=== PATIENT | female | born 1930 | race Asian ===

== ENCOUNTER 2017-05-17 19:46 | Inpatient (IN) | payer MEDICARE, BC ==
[~2017-05-17] VITALS: Ht 157.5 cm; Wt 50.6 kg
[~2017-05-17 19:46] MED LIST: ALLO100T PO; AMIO200T2 PO; ERGO500014 PO; FOLI-49 PO; FOLI1CAP PO; GLUCOSAMINE 1,1 EACH PO; NIFE60TA7 PO; OLME40TA14 PO; SEVE800T10 PO
--- NOTE | 2017-05-17 20:20 | ERA ---
ER Documentation Chief Complaint Date/Time DATE: 05/17/17 TIME: 20:17 Chief Complaint pt biba from home for weakness x 1 day, a&o x2 HPI Patient is an 87-year-old female with end-stage renal disease on dialysis who presents to the ER with 1 day of generalized weakness. Patient is not currently speaking which limits history. Per report, the patient has had generalized weakness since yesterday and has complained of facial pain.Last dialysis was yesterday. ROS All systems reviewed and are negative except as per history of present illness. Medications Home Meds Reported Medications Temazepam* (Temazepam*) 7.5 Mg Capsule, 7.5 MG PO HS Y for INSOMNIA, CAP 05/17/17 Ergocalciferol* (Drisdol* (Vitamin D2)) 50,000 Unit Capsule, 73490 UNIT PO Q14D , CAP 05/19/16 Folic Acid/Vitamin B Comp W-C (Nephrocaps Capsule) 1 Mg Capsule, 1 MG PO DAILY, CAP 05/19/16 Amiodarone Hcl* (Amiodarone Hcl*) 200 Mg Tablet, 100 MG PO DAILY, #30 TAB 05/19/16 Olmesartan Medoxomil (Benicar) 40 Mg Tablet, 40 MG PO DAILY, #30 TAB 05/19/16 Sevelamer Hcl* (Renagel*) 800 Mg Tablet, 1600 MG PO WITH MEALS TID, TAB 05/19/16 Allopurinol* (Allopurinol*) 100 Mg Tablet, 100 MG PO DAILY, TAB 05/19/16 Nifedipine* (Nifedipine ER*) 60 Mg Tablet.sa, 60 MG PO DAILY, TAB.SA 05/19/16 Folic Acid* (Folic Acid*) 1 Mg Tablet, 1 MG PO DAILY, TAB 05/19/16 Discontinued Reported Medications Gluc Burrell/Chondro Burrell A/Vit C/Mn (Glucosamine 1,500 Complex Cp) 1 Each Capsule, 1 EACH PO, CAP 05/19/16 Allergies Allergies: Coded Allergies: gabapentin (Unverified Adverse Reaction, Unknown, 05/17/17) PMhx/Soc Past medical history: Diabetes mellitus, hypertension, end-stage renal disease Past surgical history: Left arm dialysis fistula, cannot obtain further history Social history: Cannot obtain History of Surgery: Yes (PACEMAKER RIGHT CHEST 7YRS AGO, RIGHT HIP SURGERY 3YRS AGO, HYSTERECTOMY 17) Anesthesia Reaction: No Hx Neurological Disorder: No Hx Respiratory Disorders: No Hx Cardiac Disorders: Yes (PACEMAKER 7 YRS AGO) Hx Psychiatric Problems: No Hx Alcohol Use: No Hx Substance Use: No Hx Tobacco Use: No Smoking Status: Never smoker FmHx Cannot obtain Physical Exam Vitals Vital Signs Date Time Temp Pulse Resp B/P Pulse Ox O2 Delivery O2 Flow Rate FiO2 05/17/17 21:06 98.6 52 21 145/73 94 Room Air 05/17/17 19:54 98.6 57 18 166/74 93 Physical Exam Const: Alert, lethargic, follows commands but not speaking, Groaning Head: Atraumatic Eyes: Normal Conjunctiva, No pallor, no icterus ENT: Normal External Ears, Nose and Mouth.Tacky mucous membranes, no intraoral lesions. Neck: Full range of motion..~ No meningismus. Resp: Clear to auscultation bilaterally, No wheezes, no rales Cardio: Regular rate and rhythm, no murmurs Abd: Soft, non tender, non distended. 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 Psych: Normal Mood and Affect Result Diagram: 05/17/172109 Results 24 hrs Laboratory Tests Test 05/17/17 21:10 White Blood Count 6.610^3/ul Red Blood Count 3.1310^6/ul Hemoglobin 10.4g/dl Hematocrit 31.7% Mean Corpuscular Volume 101.3fl Mean Corpuscular Hemoglobin 33.2pg Mean Corpuscular Hemoglobin Concent 32.8g/dl Red Cell Distribution Width 17.2% Platelet Count 10075^3/UL Mean Platelet Volume 10.9fl Neutrophils % 75.6% Lymphocytes % 12.1% Monocytes % 10.0% Eosinophils % 0.5% Basophils % 0.6% Nucleated Red Blood Cells % 0.0/100WBC Neutrophils # (Manual) 5.010^3/ul Lymphocytes # 0.810^3/ul Monocytes # 0.710^3/ul Eosinophils # 0.010^3/ul Basophils # 0.010^3/ul Nucleated Red Blood Cells # 0.010^3/ul Prothrombin Time 13.6Sec Prothrombin Time Ratio 1.1 INR International Normalized Ratio 1.04 Activated Partial Thromboplast Time 31.8Sec Sodium Level Pending Potassium Level Pending Chloride Level Pending Carbon Dioxide Level Pending Anion Gap Pending Blood Urea Nitrogen Pending Creatinine Pending Glucose Level Pending Lactic Acid Level 1.5mmol/L Calcium Level Pending Total Bilirubin Pending Direct Bilirubin Pending Indirect Bilirubin Pending Aspartate Amino Transf (AST/SGOT) Pending Alanine Aminotransferase (ALT/SGPT) Pending Alkaline Phosphatase Pending Troponin I 0.017ng/ml Total Protein Pending Albumin Pending Globulin Pending Albumin/Globulin Ratio Pending Current Medications Medications (Trade) Dose Ordered Sig/Dannielle Route PRN Reason Start Time Stop Time Status Last Admin Dose Admin Ondansetron HCl (Zofran Inj) 4 mg BRIDGE ORDER PRN IV NAUSEA AND/OR VOMITING 05/18/17 00:00 05/18/17 23:59 Acetaminophen (Tylenol Tab) 650 mg ER BRIDGE PRN PO MILD PAIN/FEVER 05/18/17 00:00 05/18/17 23:59 Procedures/MDM EKG read by me: Time 2051, rate 54 Rhythm: Sinus bradycardia [place]: Right superior Intervals: Right bundle branch block ST-T waves: Nonspecific changes in anterior leads Ectopy: No Q-waves: No Impression: Bradycardia with right bundle branch block and nonspecific ST-T wave changes in anterior leads that are not clearly ischemic MDM: Patient is an 87-year-old female who presents with 2 days of generalized weakness. She normally is able to walk with a walker, but has not been able to get out of bed since yesterday. She also has history of trigeminal neuralgia and states that her symptoms have been worse for the last 2 days. She has no fever or signs of infection. She has no focal neuro deficit and has a negative head CT. She has no leukocytosis. 2 BMPs were drawn and both hemolyzed, so at this time only troponin and lactic acid have resulted and are normal. The patient will be admitted based on clinical presentation, with close follow-up of BMP when redraw is available. I have spoke with Dr. Cahudhry and Dr. Silver, who will follow up on the electrolyte results. Accu-Chek was 99. Departure Diagnosis: Primary Impression: Acute weakness Additional Impression: End stage renal disease Condition: STEVEN Brown MD May 17, 2017 20:20
--- NOTE | 2017-05-17 20:50 | RADRPT ---
PROCEDURE: CT Brain without contrast. CLINICAL INDICATION: Altered mental status TECHNIQUE: A CT of the brain was performed on a multidetector CT scanner utilizing axial imaging f rom the skull base through the vertex without IV contrast. Multiplanar reformatted images were made . Images were reviewed on a PACS workstation. The CTDIvol is 117.89 mGy mGy and the DLP is 1813.58 mGy.cm mGycm. Individualized dose optimization technique was used for the performance of this exam. This included 1. Automated exposure control. 2. Adjustment of the mA/or kV according to the patient size. 3. Use of iterative reconstruction technique. COMPARISON: None FINDINGS: There is moderate diffuse cerebral volume loss with sulcal and ventricular dilatation. No discrete e xtra-axial fluid collection or masses present. The ventricles are in the midline and of normal conto ur and configuration. Noted is periventricular white matter disease in both cerebral hemispheres. No associated mass effect is seen. There is no intracranial hemorrhage. There is preservation of jeffrey l barnett-white discrimination. There is minimal debris in the right sphenoid sinus. IMPRESSION: Atrophy. White matter disease compatible with chronic small vessel ischemia. No intracranial hemorrh age, mass or acute infarct. .Conner Herrmann MD, MD Date Time Electronically viewed and signed by .Conner Herrmann MD, MD on 05/17/2017 20:50 .A/
[2017-05-17] MEDS ORDERED: TEMA7.5C PO (21:35)
[2017-05-17 21:39] LABS: BASOPHILS % 0.6 % (0.0-2.0); EOSINOPHILS % 0.5 % (0.0-7.0); HEMATOCRIT 31.7 % (37.0-47.0); HEMOGLOBIN 10.4 g/dl (12.0-16.0); LYMPHOCYTES # 0.8 10^3/ul (0.8-2.9); LYMPHOCYTES % 12.1 % (15.0-51.0); MEAN CORPUSCULAR HEMOGLOBIN 33.2 pg (29.0-33.0); MEAN CORPUSCULAR HGB CONC 32.8 g/dl (32.0-37.0); MEAN CORPUSCULAR VOLUME 101.3 fl (82.0-101.0); MEAN PLATELET VOLUME 10.9 fl (7.4-10.4); MONOCYTE # 0.7 10^3/ul (0.3-0.9); NEUTROPHILS % 75.6 % (39.0-77.0); PLATELET COUNT 166 10^3/UL (140-415); RED BLOOD COUNT 3.13 10^6/ul (4.20-5.40); RED CELL DISTRIBUTION WIDTH 17.2 % (11.5-14.5); WHITE BLOOD COUNT 6.6 10^3/ul (4.8-10.8)
--- NOTE | 2017-05-17 21:49 | RADRPT ---
PROCEDURE: XR Chest. CLINICAL INDICATION: Shortness of breath. TECHNIQUE: AP Portable chest. COMPARISON: No pertinent prior examinations were submitted for comparison. FINDINGS: There is moderate to marked cardiomegaly. Atherosclerotic calcifications are noted in the aorta. A r ight chest cardiac device and leads are noted. The lungs are clear. The osseous structures are unr emarkable. IMPRESSION: No acute findings. RPTAT: HIKT .Familia Pérez MD, MD Date Time Electronically viewed and signed by .Familia Pérez MD, on 05/17/2017 21:49 .T/
[2017-05-17 21:52] LABS: INR 1.04; PROTIME 13.6 Sec (12.2-14.2); PT RATIO 1.1
[2017-05-17 21:53] LABS: PARTIAL THROMBOPLASTIN TIME 31.8 Sec (25.0-35.0)
[2017-05-17 22:14] LABS: TROPONIN-I 0.017 ng/ml (0.00-0.12)
[2017-05-18] VITALS (13 sets, daily range): BP systolic 142–185; BP diastolic 58–79; PULSE 50–67; RESP 16–20; TEMP 98.4; Ht 157.5 cm; Wt 50.6 kg
[2017-05-18] MEDS ORDERED: ONDANSETRON 4 MG INJ IV PRN
[2017-05-18 00:45] LABS: ALBUMIN 3.4 g/dl (3.3-4.9); ALBUMIN/GLOBULIN RATIO 1.03; CALCIUM 8.9 mg/dl (8.4-10.2); CREATININE 4.16 mg/dl (0.44-1.00); TOTAL PROTEIN 6.7 g/dl (6.1-8.1)
[2017-05-18] MEDS ORDERED: ACETAMINOPHEN 325 MG TAB PO PRN ×2 (01:30)
[2017-05-18] MEDS: FAMOTIDINE 20 MG INJ IV SCH ×2 (01:30→09:13)
[2017-05-18] MEDS ORDERED: NACL 0.9% 3 ML SYG IV SCH (01:30)
[2017-05-18] MEDS: hydrALAzine 20 MG INJ IV PRN ×2 (03:47→12:30)
[2017-05-18] MEDS: ONDANSETRON 4 MG INJ IV PRN ×3 (07:03→22:17)
--- NOTE | 2017-05-18 07:32 | HP ---
Date/Time of Note Date/Time of Note DATE: 05/18/17 TIME: 07:26 Assessment/Plan VTE Prophylaxis VTE Prophylaxis Intervention: SCD's Lines/Catheters IV [facility] ([facility] [place] Urinary Cath still in place: No Assessment/Plan Chief Complaint/Hosp Course This is a 87-year-old female being admitted to the [facility] floor for: #1 generalized weakness: Infectious versus metabolic versus dehydration versus other underlying etiology. At the current time patient's white blood cell count was within normal values she is afebrile. Chest x-ray does not show any sign of pneumonia. At the current etiology of her sudden weakness is not known. Will check a CRP and ESR level. Will attempt to get a urinalysis with urine that she does reduce. Will trend cardiac enzymes for completeness sake. Will consult nephrology as well. #2 mild dehydration: Patient does appear to have moist mucous membranes, will provide her with gentle IV fluid hydration. #3 end-stage renal disease: Patient did have dialysis on Sunday, will consult nephrology for further guidance. #4 hypertension: We will continue to monitor blood pressure and resume all medication as indicated. #5 elevated alkaline phosphatase: This likely to be secondary to acute phase reactant, will continue to monitor an order right upper quadrant ultrasound if indicated. Patient currently does not does not have a fever or elevated white blood cell count #6 DVT GI prophylaxis: SCDs, acid antonio Further treatment strategy will be implemented as per the clinical course Problems: HPI/ROS Admit Date/Time Admit Date/Time May 17, 2017 at 23:58 Hx of Present Illness CC: generalized weakness. Patient is an 87-year-old female with end-stage renal disease on dialysis who presents to the ER with 1 day of generalized weakness. Patient is not currently speaking which limits history. Per report, the patient has had generalized weakness since yesterday and has complained of facial pain.Last dialysis was yesterday. Family is present at the bedside of my examination and he stated that patient usually does feel slightly unwell after dialysis however she usually improves at this time she has not. She was complaining of left- sided facial pain which has now since resolved. She has not had this happen to her before. She does still produce small amount of urine though she is on dialysis. Denies any fevers or chest pain or shortness of breath or nausea vomiting or diarrhea. Allergies: Gabapentin Medications: See Nov Const: As per HPI Eyes : No pain discharge or redness or change in visual acuity ENT: As per HPI Respiratory: No shortness of breath, cough, sputum, wheezing, or pleuritic pain Cardiovascular: No chest pain, palpitation, PND, or edema GI : no change in appetite, abdominal pain, nausea, vomiting, diarrhea, constipation, or change in the color his stool Genitourinary: No dysuria, hematuria, flank pain , discharge or CVA tenderness Musculoskeletal: No joint pain, back pain, neck pain, restricted range of motion in neck or joints Skin: No rash, bruising or hives Neuro: As per HPI Endocrine: No polyuria, polydipsia, temperature intolerance Psych: No hallucination, depression, anxiety or suicidal ideation PMH/Family/Social Past Medical History Hypertension, end-stage renal disease, arthritis Past Surgical History Left hip surgery, left AV fistula, pacemaker placement Family History Significant Family History: no pertinent family hx Social History Alcohol Use: none Smoking Status: Former smoker Drug Use: none Exam/Review of Systems Vital Signs Vitals Vital Signs Date Time Temp Pulse Resp B/P Pulse Ox O2 Delivery O2 Flow Rate FiO2 05/18/17 01:30 98.3 52 18 166/75 96 05/18/17 00:48 Room Air Exam Exam General: Patient is lying in bed sleeping, she is easily arousable however she is lethargic HEENT: Atraumatic, normocephalic. The pupils are equal, round and reactive. Extraocular motor are intact, mucous membranes are dry Neck: Supple with full range of motion. No rigidity or meningismus Chest: Nontender Lungs: Clear to auscultation bilaterally no crackles rales or wheezing Heart: Normal S1-S2, Regular rhythm and rate. No murmur, S3, or S4 Abdomen: Soft , nontender, nondistended , bowel sounds are present. No guarding no rebound tenderness , No masses or organomegaly. No costovertebral temporal angle mass Extremities: Normal to inspection, no edema no cyanosis Neurologic: Normal mental status, speech normal, unable to fully assess neuro exam secondary to patient's lethargy. Additional Comments PROCEDURE: XR Chest. CLINICAL INDICATION: Shortness of breath. TECHNIQUE: AP Portable chest. COMPARISON: No pertinent prior examinations were submitted for comparison. FINDINGS: There is moderate to marked cardiomegaly. Atherosclerotic calcifications are noted in the aorta. A right chest cardiac device and leads are noted. The lungs are clear. The osseous structures are unremarkable. IMPRESSION: No acute findings. RPTAT: HIKT .Familia Pérez MD, MD Date Time Electronically viewed and signed by .Familia Pérez MD, MD on 05/17/2017 21:49 .T/ CC: STEVEN MENDIOLA MD PROCEDURE: CT Brain without contrast. CLINICAL INDICATION: Altered mental status TECHNIQUE: A CT of the brain was performed on a multidetector CT scanner utilizing axial imaging from the skull base through the vertex without IV contrast. Multiplanar reformatted images were made. Images were reviewed on a PACS workstation. The CTDIvol is 117.89 mGy mGy and the DLP is 1813.58 mGy.cm mGycm. Individualized dose optimization technique was used for the performance of this exam. This included 1. Automated exposure control. 2. Adjustment of the mA/or kV according to the patient size. 3. Use of iterative reconstruction technique. COMPARISON: None FINDINGS: There is moderate diffuse cerebral volume loss with sulcal and ventricular dilatation. No discrete extra-axial fluid collection or masses present. The ventricles are in the midline and of normal contour and configuration. Noted is periventricular white matter disease in both cerebral hemispheres. No associated mass effect is seen. There is no intracranial hemorrhage. There is preservation of normal barnett-white discrimination. There is minimal debris in the right sphenoid sinus. IMPRESSION: Atrophy. White matter disease compatible with chronic small vessel ischemia. No intracranial hemorrhage, mass or acute infarct. .Conner Herrmann MD, Date Time Electronically viewed and signed by .Conner Herrmann MD, MD on 05/17/2017 20: 50 .A/ CC: STEVEN MENDIOLA MD Labs Result Diagram: 05/17/17210905/17/172109 Medications Medications Current Medications Ondansetron HCl (Zofran Inj) 4 mg Q6H PRN IV NAUSEA AND/OR VOMITING Last administered on 05/18/17 07:03; Admin Dose 4 MG; Start 05/18/17 at 01:30 Acetaminophen (Tylenol Tab) 650 mg Q6H PRN PO PAIN LEVEL 1-3 OR FEVER; Start at 01:30 Famotidine (Pepcid Iv) 20 mg DAILY IV ; Start 05/18/17 at 01:30 Hydralazine HCl (Apresoline) 10 mg Q4H PRN IV ELEVATED SYSTOLIC BP Last administered on 05/18/17 03:47; Admin Dose 10 MG; Start 05/18/17 at 03:30 DALY FATIMA May 18, 2017 07:32
[2017-05-18 07:33] LABS: ALBUMIN 3.8 g/dl (3.3-4.9); CALCIUM 9.3 mg/dl (8.4-10.2); CREATININE 4.48 mg/dl (0.44-1.00); POTASSIUM 5.1 mmol/L (3.5-5.1); TOTAL PROTEIN 7.6 g/dl (6.1-8.1)
[2017-05-18 08:10] LABS: C-REACTIVE PROTEIN 2.3 mg/dl (0.0-0.9); MAGNESIUM 2.3 mg/dl (1.7-2.5); PHOSPHORUS 3.5 mg/dl (2.5-4.9)
[2017-05-18 08:18] LABS: TROPONIN-I 0.029 ng/ml (0.00-0.12)
[2017-05-18 08:28] LABS: CHOL/HDL RATIO 1.9 RATIO
[2017-05-18] MEDS ORDERED: HYDROmorphONE 1 MG/ML SYG IV PRN (08:30)
[2017-05-18] MEDS: NIFEdipine (XL) 60 MG TAB PO SCH ×2 (09:00→13:58)
[2017-05-18] MEDS ORDERED: ZOLPIDEM 5 MG TAB PO PRN (09:00)
[2017-05-18] MEDS: LOSARTAN 50 MG TAB PO SCH ×2 (09:00→13:57)
[2017-05-18] MEDS: DEXTROSE 5%-0.45% NACL 1,000 ML IV SCH (09:08)
[2017-05-18] MEDS: MULTIVIT/CA CARB/B CMPLX/FA TAB PO SCH (09:12)
[2017-05-18] MEDS: SEVELAMER 800 MG TAB PO SCH ×4 (09:12→22:10)
[2017-05-18] MEDS: ALLOPURINOL 100 MG TAB PO SCH (09:13)
--- NOTE | 2017-05-18 09:51 | HP ---
DATE OF ADMISSION: 05/17/2017 REASON FOR ADMISSION: Dizziness, left jaw pain, generalized weakness. HISTORY OF PRESENT ILLNESS: This 87-year-old female has been ill for at least 2-3 days. The patient has had difficulty eating because whenever she opens her jaw it can trigger a left-sided jaw pain, which is probably trigeminal neuralgia. She has tried several medications including gabapentin and baclofen, which have not helped the pain. She has been on pain pills including Advil and tramadol without relief. Then the last couple of days, she has started baclofen. She then developed some nausea with vomiting and she has been dizzy. She has end-stage renal disease and is on maintenance hemodialysis Sunday, Sunday, Sunday, and today being Sunday, she is due for dialysis. She has a left upper arm AV fistula for dialysis. She denies any chest pain. She has not had any shortness of breath. PAST MEDICAL HISTORY: Remarkable for end-stage renal disease, hypertension, arrhythmia, peripheral neuropathy, cardiac pacemaker. SURGICAL HISTORY: Remarkable for cholecystectomy in 1978, hysterectomy in 1974, left upper arm fistula creation, cardiac pacemaker, 2010. FAMILY HISTORY: Father , diagnosed with hypertension. Mother . SOCIAL HISTORY: The patient does not smoke. Does not drink alcohol. MEDICATIONS: Include: 1. Ativan 0.5 mg at bedtime p.r.n. anxiety. 2. Nifediac CC 90 mg a day extended-release. 3. Vitamin D2, 50,000 units weekly. 4. Benicar 40 mg a day. 5. Lactulose Syrup orally once or twice a day for constipation. 6. Nephrocaps 1 daily. 7. Amiodarone 100 mg a day. 8. Renagel 1600 mg with each meal. 9. Temazepam 7.5 mg at bedtime for sleep. 10. Allopurinol 100 mg a day. 11. Advil p.r.n. pain. 12. [place] 5/325 every 6 hours p.r.n. pain. 13. Tramadol 50 mg q.6 hours p.r.n. pain. REVIEW OF SYSTEMS: CONSTITUTIONAL: Generalized weakness, frail, elderly. Poor appetite. HEENT: Negative. HEART: Regular rhythm with a 1/6 systolic ejection murmur. LUNGS: Clear to auscultation. BACK: No spine or CVA tenderness. She did have a large mass on the right upper posterior chest, which has resolved. ABDOMEN: Soft, nontender. No masses or megaly. EXTREMITIES: Trace pretibial edema. Left upper arm AV fistula. IMPRESSION: 1. Generalized weakness with dizziness, nausea, vomiting. 2. Trigeminal neuralgia on the left jaw. 3. End-stage renal disease, on maintenance hemodialysis. 4. History of arteritis. 5. History of enlarged lymph nodes. 6. Arthropathy. PLAN: 1. Hemodialysis treatment for today. 2. Neurology consultation. 3. IV fluids, antiemetics and pain medicine. 4. The patient has failed gabapentin and baclofen for the trigeminal neuralgia. I would like to use Dilantin or less likely Tegretol. We will discuss with neurologist. Dictated By: Reagan Mathew MD /heather/obie /Document#: [id number]
--- NOTE | 2017-05-18 10:19 | QN ---
Documentation Comment Patient seen and examined with family at bedside. Patient was started on Baclofen and received 3 doses prior to admission which may be contributing to her lethargy. She does open her eyes to command. Patient is due for dialysis today as well and her PCP/[employer] is on board. He would like to get Neurology involved for treatment options for her Trigeminal Neuralgia. Will try topical Lidocaine at this time since ice usually helps with her pain in the past. Tegretol should be avoided in ESRD based on studies but will ask if Lamotrigine would be an alternative option. EVERARDO VELASQUEZ MD May 18, 2017 10:19
[2017-05-18 11:28] LABS: FREE T3 2.48 pg/ml (2.77-5.27)
[2017-05-18] MEDS ORDERED: LIDOCAINE 5% 35 GM OINT TOP PRN (12:30)
[2017-05-18] MEDS: LIDOCAINE 5% 35 GM OINT TOP SCH ×3 (12:36→22:11)
--- NOTE | 2017-05-18 12:44 | CONS ---
Date/Time of Note Date/Time of Note DATE: 05/18/17 TIME: 12:33 Assessment/Plan Assessment/Plan Chief Complaint/Hosp Course 87 year old female with history of left jaw pain, present only on mastication, symptoms worsening with no relief with gabapentin, tramadol, baclofen. Unclear if this represents trigeminal neuralgia vs. TMJ. ESR: 47 Would ideally recommend MRI Brain w w/o contrast to rule out possibility of vascular compression/ abnormality that may precipitate trigeminal neuralgia. However patient has a PPM unable to receive MRI. May obtain CTA Head and dialyze after to rule out possibility of vascular anomaly. Recommend Trial of low dose Lyrica. Dose after dialysis. Unclear if Lyrica will alleviate her symptoms if this is TMJ. Botox is an option as well as PM&R evaluation, often TENS unit can be helpful to alleviate TMJ symptoms. Problems: Consultation Date/Type/Reason Admit Date/Time May 17, 2017 at 23:58 Date of Consultation: May 18, 2017 Type of Consultation: Neurology Reason for Consultation evaluation for trigeminal neur Referring Provider: PHOEBE WILSON MD Hx of Present Illness 87 year old female with history of difficulty eating with left sided jaw pain, anytime she opens her mouth or attempts to masticate. In the past few days her pain has worsened severely she feels nauseous and vomits when attempting to eat food. She has tried several medications including gabapentin, tramadol, baclofen with no relief of her pain. She is currently with family at bedside reports only discomfort on attempting to chew, no pain reported at rest. Social History Alcohol Use: none Smoking Status: Former smoker Drug Use: none Exam/Review of Systems Vital Signs Vitals Vital Signs Date Time Temp Pulse Resp B/P Pulse Ox O2 Delivery O2 Flow Rate FiO2 05/18/17 07:45 97.4 56 18 176/79 90 05/18/17 00:48 Room Air Exam awake and alert oriented to self hospital and families NAD resting in bed receiving dialysis CN: II-XII intact Motor poor cooperation with full exam refusing strength testing Results Result Diagram: 05/17/17210905/18/17 0554 Results 24 hrs Laboratory Tests Test 05/17/17 21:10 05/18/17 00:03 05/18/17 04:57 05/18/17 05:31 White Blood Count 6.6 Red Blood Count 3.13 L Hemoglobin 10.4 L Hematocrit 31.7 L Mean Corpuscular Volume 101.3 H Mean Corpuscular Hemoglobin 33.2 H Mean Corpuscular Hemoglobin Concent 32.8 Red Cell Distribution Width 17.2 H Platelet Count 166 Mean Platelet Volume 10.9 #H Neutrophils % 75.6 Lymphocytes % 12.1 L Monocytes % 10.0 Eosinophils % 0.5 Basophils % 0.6 Nucleated Red Blood Cells % 0.0 Neutrophils # (Manual) 5.0 Lymphocytes # 0.8 Monocytes # 0.7 Eosinophils # 0.0 Basophils # 0.0 Nucleated Red Blood Cells # 0.0 Prothrombin Time 13.6 Prothrombin Time Ratio 1.1 INR International Normalized Ratio 1.04 Activated Partial Thromboplast Time 31.8 Sodium Level 136 Potassium Level 5.0 Chloride Level 96 L Carbon Dioxide Level 32 H Anion Gap 13 Blood Urea Nitrogen 31 H Creatinine 4.16 H Glucose Level 102 Lactic Acid Level 1.5 Calcium Level 8.9 Total Bilirubin 0.0 L Direct Bilirubin 0.00 Indirect Bilirubin 0.0 Aspartate Amino Transf (AST/SGOT) 30 Alanine Aminotransferase (ALT/SGPT) 27 Alkaline Phosphatase 186 H Troponin I 0.017 Total Protein 6.7 Albumin 3.4 Globulin 3.30 H Albumin/Globulin Ratio 1.03 Bedside Glucose 99 Thyroid Stimulating Hormone (TSH) 0.348 L Erythrocyte Sedimentation Rate 47 H Test 05/18/17 05:36 05/18/17 05:50 05/18/17 05:54 05/18/17 10:08 Hemoglobin A1c 5.0 Phosphorus Level 3.5 Magnesium Level 2.3 Troponin I 0.029 0.024 C-Reactive Protein 2.3 H Triglycerides Level 80 Cholesterol Level 99 L LDL Cholesterol, Calculated 32 HDL Cholesterol 51 Cholesterol/HDL Ratio 1.9 Sodium Level 139 Potassium Level 5.1 Chloride Level 97 Carbon Dioxide Level 27 Anion Gap 20 #H Blood Urea Nitrogen 33 H Creatinine 4.48 H Glucose Level 110 Calcium Level 9.3 Total Bilirubin 0.0 L Direct Bilirubin 0.00 Indirect Bilirubin 0.0 Aspartate Amino Transf (AST/SGOT) 32 Alanine Aminotransferase (ALT/SGPT) 29 Alkaline Phosphatase 205 H Total Protein 7.6 Albumin 3.8 Globulin 3.80 H Albumin/Globulin Ratio 1.00 Test 05/18/17 10:13 Free Thyroxine 2.84 H Thyroxine (T4) 7.8 Free Triiodothyronine (T3) pg/mL 2.48 L Total Triiodothyronine Pending Medications Medications Current Medications Ondansetron HCl (Zofran Inj) 4 mg Q6H PRN IV NAUSEA AND/OR VOMITING Last administered on 05/18/17 11:54; Admin Dose 4 MG; Start 05/18/17 at 01:30 Acetaminophen (Tylenol Tab) 650 mg Q6H PRN PO PAIN LEVEL 1-3 OR FEVER; Start at 01:30 Famotidine (Pepcid Iv) 20 mg DAILY IV Last administered on 05/18/17 09:13; Admin Dose 20 MG; Start 05/18/17 at 01:30 Hydralazine HCl (Apresoline) 10 mg Q4H PRN IV ELEVATED SYSTOLIC BP Last administered on 05/18/17 12:30; Admin Dose 10 MG; Start 05/18/17 at 03:30 Allopurinol (Zyloprim) 100 mg DAILY PO Last administered on 05/18/17 09:13; Admin Dose 100 MG; Start 05/18/17 at 09:00 Nifedipine (Procardia Xl) 60 mg DAILY PO ; Start 05/18/17 at 09:00 Sevelamer HCl (Renagel) 1,600 mg TID PO Last administered on 05/18/17 09:12; Admin Dose 1,600 MG; Start 05/18/17 at 09:00 Multivit/Ca Carb/ B Cmplx/FA/Prenat (Galilea-Jaci) 1 tab DAILY PO Last administered on 05/18/17 09:12; Admin Dose 1 TAB; Start 05/18/17 at 09:00 Losartan Potassium (Cozaar) 100 mg DAILY PO ; Start 05/18/17 at 09:00 Zolpidem Tartrate 5 mg 5 mg HS PRN PO INSOMNIA; Start 05/18/17 at 09:00 Dextrose/Sodium Chloride (D5-1/2ns) 1,000 ml @ 50 mls/hr Q20H IV Last administered on 05/18/17 09:08; Admin Dose 50 MLS/HR; Start 05/18/17 at 08:30 Hydromorphone HCl (Dilaudid) 0.5 mg Q4H PRN IV SEVERE PAIN LEVEL 7-10; Start at 08:30 Lidocaine (Lidocaine 5% Oint) 1 applic BID TOP ; Start 05/18/17 at 10:00 Lidocaine (Lidocaine 5% Oint) 1 applic Q4 PRN TOP FACE PAIN; Start 05/18/17 at 12:30 MARVIN DE LA FUENTE MD May 18, 2017 12:44
[2017-05-18] MEDS ORDERED: PREGABALIN 25 MG CAP PO SCH (13:00)
[2017-05-18] MEDS ORDERED: METOCLOPRAMIDE 10 MG INJ IV PRN (13:00)
[2017-05-18 13:48] LABS: TRIIODOTHYRONINE 0.57 ng/ml (0.97-1.69)
--- NOTE | 2017-05-18 15:29 | RADRPT ---
Vent Rate: 50 bpm RR Interval: 0 msec [place] Interval: 184 msec QRS Duration: 146 msec QT Interval: 516 msec QTC Interval: 470 msec P-R-T Loris: 72 - 92 - 31 degrees Electronic atrial pacemaker Right bundle branch block Abnormal ECG Electronically Signed By: Amarjit Lyon [id number]
[2017-05-19 02:27] VITALS: BP 157/67; RESP 19
[2017-05-19] MEDS: DEXTROSE 5%-0.45% NACL 1,000 ML IV SCH (03:48)
[2017-05-19 06:28] LABS: BASOPHIL # 0.1 10^3/ul (0.0-0.1); BASOPHILS % 0.8 % (0.0-2.0); EOSINOPHILS # 0.1 10^3/ul (0.0-0.5); EOSINOPHILS % 0.7 % (0.0-7.0); HEMOGLOBIN 9.9 g/dl (12.0-16.0); LYMPHOCYTES % 14.4 % (15.0-51.0); MEAN CORPUSCULAR HEMOGLOBIN 33.2 pg (29.0-33.0); MEAN CORPUSCULAR VOLUME 100.7 fl (82.0-101.0); MEAN PLATELET VOLUME 9.3 fl (7.4-10.4); MONOCYTE # 0.7 10^3/ul (0.3-0.9); MONOCYTES % 10.1 % (0.0-11.0); NEUTROPHILS % 71.7 % (39.0-77.0); PLATELET COUNT 185 10^3/UL (140-415); RED BLOOD COUNT 2.98 10^6/ul (4.20-5.40); WHITE BLOOD COUNT 7.1 10^3/ul (4.8-10.8)
[2017-05-19 06:59] LABS: ALBUMIN 3.3 g/dl (3.3-4.9); ALBUMIN/GLOBULIN RATIO 1.03; CALCIUM 8.5 mg/dl (8.4-10.2); CREATININE 3.11 mg/dl (0.44-1.00); MAGNESIUM 1.9 mg/dl (1.7-2.5); PHOSPHORUS 3.4 mg/dl (2.5-4.9); POTASSIUM 4.1 mmol/L (3.5-5.1); TOTAL PROTEIN 6.5 g/dl (6.1-8.1)
[2017-05-19 07:51] VITALS: BP 151/70; RESP 18
[2017-05-19] MEDS: FAMOTIDINE 20 MG INJ IV SCH (08:45)
[2017-05-19] MEDS: SEVELAMER 800 MG TAB PO SCH ×3 (08:45→20:41)
[2017-05-19] MEDS: MULTIVIT/CA CARB/B CMPLX/FA TAB PO SCH (08:46)
[2017-05-19] MEDS: LOSARTAN 50 MG TAB PO SCH (08:46)
[2017-05-19] MEDS: NIFEdipine (XL) 60 MG TAB PO SCH (08:46)
[2017-05-19] MEDS: ALLOPURINOL 100 MG TAB PO SCH (08:46)
--- NOTE | 2017-05-19 08:46 | PN ---
Date/Time of Note Date/Time of Note DATE: 05/19/17 TIME: 08:45 Assessment/Plan Lines/Catheters IV Catheter Type (from Nrs): Saline Lock Urinary Cath still in place: No Assessment/Plan Assessment/Plan 1. Generalized weakness with dizziness, nausea, vomiting. 2. Trigeminal neuralgia on the left jaw. 3. End-stage renal disease, on HD Exam/Review of Systems Vital Signs Vitals Vital Signs Date Time Temp Pulse Resp B/P Pulse Ox O2 Delivery O2 Flow Rate FiO2 05/19/17 07:51 98.3 50 18 151/70 100 05/18/17 22:30 Nasal Cannula 2.0 Intake and Output 05/18/17 05/18/17 05/19/17 15:00 23:00 07:00 Intake Total 300 ml 250 ml 300 ml Output Total 3300 ml Balance -3000 ml 250 ml 300 ml Results Result Diagram: 05/19/17 0516 05/19/17 0516 Results 24 hrs Laboratory Tests Test 05/18/17 10:08 05/18/17 10:13 05/19/17 05:16 Troponin I 0.024 Free Thyroxine 2.84 H Thyroxine (T4) 7.8 Free Triiodothyronine (T3) pg/mL 2.48 L Total Triiodothyronine 0.57 L White Blood Count 7.1 Red Blood Count 2.98 L Hemoglobin 9.9 L Hematocrit 30.0 L Mean Corpuscular Volume 100.7 Mean Corpuscular Hemoglobin 33.2 H Mean Corpuscular Hemoglobin Concent 33.0 Red Cell Distribution Width 17.0 H Platelet Count 185 Mean Platelet Volume 9.3 Neutrophils % 71.7 Lymphocytes % 14.4 L Monocytes % 10.1 Eosinophils % 0.7 Basophils % 0.8 Nucleated Red Blood Cells % 0.0 Neutrophils # (Manual) 5.1 Lymphocytes # 1.0 Monocytes # 0.7 Eosinophils # 0.1 Basophils # 0.1 Nucleated Red Blood Cells # 0.0 Sodium Level 136 Potassium Level 4.1 Chloride Level 95 L Carbon Dioxide Level 31 Anion Gap 14 Blood Urea Nitrogen 16 # Creatinine 3.11 #H Glucose Level 215 # Calcium Level 8.5 Phosphorus Level 3.4 Magnesium Level 1.9 Total Bilirubin 0.0 L Direct Bilirubin 0.00 Indirect Bilirubin 0.0 Aspartate Amino Transf (AST/SGOT) 28 Alanine Aminotransferase (ALT/SGPT) 35 Alkaline Phosphatase 169 H Total Protein 6.5 # Albumin 3.3 Globulin 3.20 Albumin/Globulin Ratio 1.03 Medications Medications Current Medications Ondansetron HCl (Zofran Inj) 4 mg Q6H PRN IV NAUSEA AND/OR VOMITING Last administered on 05/18/17 22:17; Admin Dose 4 MG; Start 05/18/17 at 01:30 Acetaminophen (Tylenol Tab) 650 mg Q6H PRN PO PAIN LEVEL 1-3 OR FEVER; Start at 01:30 Famotidine (Pepcid Iv) 20 mg DAILY IV Last administered on 05/18/17 09:13; Admin Dose 20 MG; Start 05/18/17 at 01:30 Hydralazine HCl (Apresoline) 10 mg Q4H PRN IV ELEVATED SYSTOLIC BP Last administered on 05/18/17 12:30; Admin Dose 10 MG; Start 05/18/17 at 03:30 Allopurinol (Zyloprim) 100 mg DAILY PO Last administered on 05/18/17 09:13; Admin Dose 100 MG; Start 05/18/17 at 09:00 Nifedipine (Procardia Xl) 60 mg DAILY PO Last administered on 05/18/17 13:58; Admin Dose 60 MG; Start 05/18/17 at 09:00 Sevelamer HCl (Renagel) 1,600 mg TID PO Last administered on 05/18/17 22:10; Admin Dose 1,600 MG; Start 05/18/17 at 09:00 Multivit/Ca Carb/ B Cmplx/FA/Prenat (Galilea-Jaci) 1 tab DAILY PO Last administered on 05/18/17 09:12; Admin Dose 1 TAB; Start 05/18/17 at 09:00 Losartan Potassium (Cozaar) 100 mg DAILY PO Last administered on 05/18/17 13:57 ; Admin Dose 100 MG; Start 05/18/17 at 09:00 Zolpidem Tartrate 5 mg 5 mg HS PRN PO INSOMNIA; Start 05/18/17 at 09:00 Dextrose/Sodium Chloride (D5-1/2ns) 1,000 ml @ 50 mls/hr Q20H IV Last administered on 05/19/17 03:48; Admin Dose 50 MLS/HR; Start 05/18/17 at 08:30 Hydromorphone HCl (Dilaudid) 0.5 mg Q4H PRN IV SEVERE PAIN LEVEL 7-10; Start at 08:30 Lidocaine (Lidocaine 5% Oint) 1 applic BID TOP Last administered on 05/18/17 22 :11; Admin Dose 1 APPLIC; Start 05/18/17 at 10:00 Lidocaine (Lidocaine 5% Oint) 1 applic Q4 PRN TOP FACE PAIN Last administered on 05/18/17 15:20; Admin Dose 1 APPLIC; Start 05/18/17 at 12:30 Metoclopramide HCl (Reglan) 10 mg Q6H PRN IV NAUSEA AND/OR VOMITING Last administered on 05/18/17 13:58; Admin Dose 10 MG; Start 05/18/17 at 13:00 EVERARDO VELASQUEZ MD May 19, 2017 08:46
[2017-05-19] MEDS: LIDOCAINE 5% 35 GM OINT TOP SCH ×2 (08:47→17:23)
--- NOTE | 2017-05-19 09:55 | CONS ---
Date/Time of Note Date/Time of Note DATE: 05/19/17 TIME: 09:53 Consult Date/Type/Reason Admit Date/Time May 17, 2017 at 23:58 Initial Consult Date 05/18/17 Type of Consultation: Neurology Reason for Consultation trigeminal neuralgia left jaw pain Ordering Provider: PHOEBE WILSON MD Subjective ate breakfast today had a lidocaine patch with improved symptoms able to tolerate chewing given Lyrica one dose after dialysis yesterday 25 mg Objective Vital Signs Date Time Temp Pulse Resp B/P Pulse Ox O2 Delivery O2 Flow Rate FiO2 05/19/17 07:51 98.3 50 18 151/70 100 05/18/17 22:30 Nasal Cannula 2.0 Intake and Output 05/18/17 05/18/17 05/19/17 15:00 23:00 07:00 Intake Total 300 ml 250 ml 300 ml Output Total 3300 ml Balance -3000 ml 250 ml 300 ml Exam awake and alert oriented to self hospital and families NAD resting in bed receiving dialysis CN: II-XII intact Motor full strength in all extremities sensory intact throughout Coord intact no tremors Results/Medications Result Diagram: 05/19/17 0516 05/19/17 0516 Results 24 hrs Laboratory Tests Test 05/18/17 10:08 05/18/17 10:13 05/19/17 05:16 Troponin I 0.024 Free Thyroxine 2.84 H Thyroxine (T4) 7.8 Free Triiodothyronine (T3) pg/mL 2.48 L Total Triiodothyronine 0.57 L White Blood Count 7.1 Red Blood Count 2.98 L Hemoglobin 9.9 L Hematocrit 30.0 L Mean Corpuscular Volume 100.7 Mean Corpuscular Hemoglobin 33.2 H Mean Corpuscular Hemoglobin Concent 33.0 Red Cell Distribution Width 17.0 H Platelet Count 185 Mean Platelet Volume 9.3 Neutrophils % 71.7 Lymphocytes % 14.4 L Monocytes % 10.1 Eosinophils % 0.7 Basophils % 0.8 Nucleated Red Blood Cells % 0.0 Neutrophils # (Manual) 5.1 Lymphocytes # 1.0 Monocytes # 0.7 Eosinophils # 0.1 Basophils # 0.1 Nucleated Red Blood Cells # 0.0 Sodium Level 136 Potassium Level 4.1 Chloride Level 95 L Carbon Dioxide Level 31 Anion Gap 14 Blood Urea Nitrogen 16 # Creatinine 3.11 #H Glucose Level 215 # Calcium Level 8.5 Phosphorus Level 3.4 Magnesium Level 1.9 Total Bilirubin 0.0 L Direct Bilirubin 0.00 Indirect Bilirubin 0.0 Aspartate Amino Transf (AST/SGOT) 28 Alanine Aminotransferase (ALT/SGPT) 35 Alkaline Phosphatase 169 H Total Protein 6.5 # Albumin 3.3 Globulin 3.20 Albumin/Globulin Ratio 1.03 Medications Current Medications Ondansetron HCl (Zofran Inj) 4 mg Q6H PRN IV NAUSEA AND/OR VOMITING Last administered on 05/18/17 22:17; Admin Dose 4 MG; Start 05/18/17 at 01:30 Acetaminophen (Tylenol Tab) 650 mg Q6H PRN PO PAIN LEVEL 1-3 OR FEVER; Start at 01:30 Famotidine (Pepcid Iv) 20 mg DAILY IV Last administered on 05/19/17 08:45; Admin Dose 20 MG; Start 05/18/17 at 01:30 Hydralazine HCl (Apresoline) 10 mg Q4H PRN IV ELEVATED SYSTOLIC BP Last administered on 05/18/17 12:30; Admin Dose 10 MG; Start 05/18/17 at 03:30 Allopurinol (Zyloprim) 100 mg DAILY PO Last administered on 05/19/17 08:46; Admin Dose 100 MG; Start 05/18/17 at 09:00 Nifedipine (Procardia Xl) 60 mg DAILY PO Last administered on 05/19/17 08:46; Admin Dose 60 MG; Start 05/18/17 at 09:00 Sevelamer HCl (Renagel) 1,600 mg TID PO Last administered on 05/19/17 08:45; Admin Dose 1,600 MG; Start 05/18/17 at 09:00 Multivit/Ca Carb/ B Cmplx/FA/Prenat (Galilea-Jaci) 1 tab DAILY PO Last administered on 05/19/17 08:46; Admin Dose 1 TAB; Start 05/18/17 at 09:00 Losartan Potassium (Cozaar) 100 mg DAILY PO Last administered on 05/19/17 08:46 ; Admin Dose 100 MG; Start 05/18/17 at 09:00 Zolpidem Tartrate 5 mg 5 mg HS PRN PO INSOMNIA; Start 05/18/17 at 09:00 Dextrose/Sodium Chloride (D5-1/2ns) 1,000 ml @ 50 mls/hr Q20H IV Last administered on 05/19/17 03:48; Admin Dose 50 MLS/HR; Start 05/18/17 at 08:30 Hydromorphone HCl (Dilaudid) 0.5 mg Q4H PRN IV SEVERE PAIN LEVEL 7-10; Start at 08:30 Lidocaine (Lidocaine 5% Oint) 1 applic BID TOP Last administered on 05/19/17 08 :47; Admin Dose 1 APPLIC; Start 05/18/17 at 10:00 Lidocaine (Lidocaine 5% Oint) 1 applic Q4 PRN TOP FACE PAIN Last administered on 05/18/17 15:20; Admin Dose 1 APPLIC; Start 05/18/17 at 12:30 Metoclopramide HCl (Reglan) 10 mg Q6H PRN IV NAUSEA AND/OR VOMITING Last administered on 05/18/17 13:58; Admin Dose 10 MG; Start 05/18/17 at 13:00 Assessment/Plan Chief Complaint/Hosp Course 87 year old female with history of left jaw pain, present only on mastication, symptoms worsening with no relief with gabapentin, tramadol, baclofen. Unclear if this represents trigeminal neuralgia vs. TMJ. ESR: 47 Would ideally recommend MRI Brain w w/o contrast to rule out possibility of vascular compression/ abnormality that may precipitate trigeminal neuralgia. However patient has a PPM unable to receive MRI. May obtain CTA Head and dialyze after to rule out possibility of vascular anomaly. Given low dose Lyrica 25 mg yesterday after dialysis, became sleepy after? if concern for side effect of Lyrica may d/c Lidocaine patch is improving symptoms may continue if no contraindications Botox is an option as well as PM&R evaluation, often TENS unit can be helpful to alleviate symptoms Problems: MARVIN DE LA FUENTE MD May 19, 2017 09:55
--- NOTE | 2017-05-19 13:09 | PN ---
Date/Time of Note Date/Time of Note DATE: 05/19/17 TIME: 13:05 Assessment/Plan VTE Prophylaxis VTE Prophylaxis Intervention: SCD's Lines/Catheters IV Catheter Type (from Nrs): Saline Lock Urinary Cath still in place: No Assessment/Plan Assessment/Plan 1. Generalized weakness with dizziness, nausea, vomiting - Resolved. - etiology medication induced vs infections vs uremia 2. Trigeminal neuralgia on the left jaw. - Neurology on board and recommendations appreciated - Doing well on topical Lidocaine before meals - d/c Lyrica secondary to oversedation - CTA planned for Sunday before HD in order to assess for possibility of vascular compression/ abnormality that may precipitate trigeminal neuralgia. - if imaging studies show no abnormalities will d/c - Spoke with family about Botox being an option as well as outpatient 3. End-stage renal disease, on HD Subjective 24 Hr Interval Summary Free Text/Dictation Patient more awake and alert this am. Granddaughter at bedside and states she has been able to eat with ease when lidocaine applied prior to eating. Spoke with Daughter over the phone who said patient was very sedated after HD yesterday and hard to arouse. She also updated me on the plans for CTA per PCP. Patient denies any new complaints and no acute overnight events. Patient has caregivers that come to the home 8 hours/day. Exam/Review of Systems Vital Signs Vitals Vital Signs Date Time Temp Pulse Resp B/P Pulse Ox O2 Delivery O2 Flow Rate FiO2 05/19/17 07:51 98.3 50 18 151/70 100 05/18/17 22:30 Nasal Cannula 2.0 Intake and Output 05/18/17 05/18/17 05/19/17 15:00 23:00 07:00 Intake Total 300 ml 250 ml 300 ml Output Total 3300 ml Balance -3000 ml 250 ml 300 ml Exam General: NAD, more awake and interactive today CVS: regular rate and rhythm. Systolic murmur Lungs: CTA b/l. no wheezes or rhonchi Abd: soft, NT, ND, +BS, no rebound or guarding Ext: no edema, cyanosis or clubbing Neuro: AAOx3, no focal deficits, nontender palpation of left cheek Results Result Diagram: 05/19/17 0516 05/19/17 0516 Results 24 hrs Laboratory Tests Test 05/19/17 05:16 White Blood Count 7.1 Red Blood Count 2.98 L Hemoglobin 9.9 L Hematocrit 30.0 L Mean Corpuscular Volume 100.7 Mean Corpuscular Hemoglobin 33.2 H Mean Corpuscular Hemoglobin Concent 33.0 Red Cell Distribution Width 17.0 H Platelet Count 185 Mean Platelet Volume 9.3 Neutrophils % 71.7 Lymphocytes % 14.4 L Monocytes % 10.1 Eosinophils % 0.7 Basophils % 0.8 Nucleated Red Blood Cells % 0.0 Neutrophils # (Manual) 5.1 Lymphocytes # 1.0 Monocytes # 0.7 Eosinophils # 0.1 Basophils # 0.1 Nucleated Red Blood Cells # 0.0 Sodium Level 136 Potassium Level 4.1 Chloride Level 95 L Carbon Dioxide Level 31 Anion Gap 14 Blood Urea Nitrogen 16 # Creatinine 3.11 #H Glucose Level 215 # Calcium Level 8.5 Phosphorus Level 3.4 Magnesium Level 1.9 Total Bilirubin 0.0 L Direct Bilirubin 0.00 Indirect Bilirubin 0.0 Aspartate Amino Transf (AST/SGOT) 28 Alanine Aminotransferase (ALT/SGPT) 35 Alkaline Phosphatase 169 H Total Protein 6.5 # Albumin 3.3 Globulin 3.20 Albumin/Globulin Ratio 1.03 Medications Medications Current Medications Ondansetron HCl (Zofran Inj) 4 mg Q6H PRN IV NAUSEA AND/OR VOMITING Last administered on 05/18/17 22:17; Admin Dose 4 MG; Start 05/18/17 at 01:30 Acetaminophen (Tylenol Tab) 650 mg Q6H PRN PO PAIN LEVEL 1-3 OR FEVER; Start at 01:30 Famotidine (Pepcid Iv) 20 mg DAILY IV Last administered on 05/19/17 08:45; Admin Dose 20 MG; Start 05/18/17 at 01:30 Allopurinol (Zyloprim) 100 mg DAILY PO Last administered on 05/19/17 08:46; Admin Dose 100 MG; Start 05/18/17 at 09:00 Nifedipine (Procardia Xl) 60 mg DAILY PO Last administered on 05/19/17 08:46; Admin Dose 60 MG; Start 05/18/17 at 09:00 Sevelamer HCl (Renagel) 1,600 mg TID PO Last administered on 05/19/17 08:45; Admin Dose 1,600 MG; Start 05/18/17 at 09:00 Multivit/Ca Carb/ B Cmplx/FA/Prenat (Galilea-Jaci) 1 tab DAILY PO Last administered on 05/19/17 08:46; Admin Dose 1 TAB; Start 05/18/17 at 09:00 Losartan Potassium (Cozaar) 100 mg DAILY PO Last administered on 05/19/17 08:46 ; Admin Dose 100 MG; Start 05/18/17 at 09:00 Zolpidem Tartrate 5 mg 5 mg HS PRN PO INSOMNIA; Start 05/18/17 at 09:00 Dextrose/Sodium Chloride (D5-1/2ns) 1,000 ml @ 50 mls/hr Q20H IV Last administered on 05/19/17 03:48; Admin Dose 50 MLS/HR; Start 05/18/17 at 08:30 Lidocaine (Lidocaine 5% Oint) 1 applic Q4 PRN TOP FACE PAIN Last administered on 05/18/17 15:20; Admin Dose 1 APPLIC; Start 05/18/17 at 12:30 Metoclopramide HCl (Reglan) 10 mg Q6H PRN IV NAUSEA AND/OR VOMITING Last administered on 05/18/17 13:58; Admin Dose 10 MG; Start 05/18/17 at 13:00 EVERARDO VELASQUEZ MD May 19, 2017 13:09
[2017-05-19 14:07] VITALS: BP 109/54; RESP 18
--- NOTE | 2017-05-19 17:47 | CONS ---
Date/Time of Note Date/Time of Note DATE: 05/19/17 TIME: 17:44 Assessment/Plan Assessment/Plan Additional Assessment/Plan * trigeminal neuralgia: on lyrica and lidocaine patch and better. appreciate neuro eval * n/v; resolved. eating more * esrd: on hd m/w/f. next hd sunday * dizziness: much better * anemia: stable. epogen prn * htn: on meds Consultation Date/Type/Reason Admit Date/Time May 17, 2017 at 23:58 Initial Consult Date 05/18/17 Type of Consultation: Neurology Referring Provider: PHOEBE WILSON MD 24 HR Interval Summary Free Text/Dictation feels better. states lidocaine patch helping and able to chew and eat more. no vomiting Exam/Review of Systems Vital Signs Vitals Vital Signs Date Time Temp Pulse Resp B/P Pulse Ox O2 Delivery O2 Flow Rate FiO2 05/19/17 14:07 98.0 50 18 109/54 99 05/18/17 22:30 Nasal Cannula 2.0 Intake and Output 05/18/17 05/18/17 05/19/17 15:00 23:00 07:00 Intake Total 300 ml 250 ml 300 ml Output Total 3300 ml Balance -3000 ml 250 ml 300 ml Exam Constitutional: alert, oriented, well developed Psych: no complaints Head: atraumatic, normocephalic Neck: non-tender, supple Respiratory: clear to auscultation, diminished breath sounds Cardiovascular: edema, nl pulses, regular rate and rhythm Gastrointestinal: non-tender, soft Results Result Diagram: 05/19/17 0516 05/19/17 0516 Results 24 hrs Laboratory Tests Test 05/19/17 05:16 White Blood Count 7.1 Red Blood Count 2.98 L Hemoglobin 9.9 L Hematocrit 30.0 L Mean Corpuscular Volume 100.7 Mean Corpuscular Hemoglobin 33.2 H Mean Corpuscular Hemoglobin Concent 33.0 Red Cell Distribution Width 17.0 H Platelet Count 185 Mean Platelet Volume 9.3 Neutrophils % 71.7 Lymphocytes % 14.4 L Monocytes % 10.1 Eosinophils % 0.7 Basophils % 0.8 Nucleated Red Blood Cells % 0.0 Neutrophils # (Manual) 5.1 Lymphocytes # 1.0 Monocytes # 0.7 Eosinophils # 0.1 Basophils # 0.1 Nucleated Red Blood Cells # 0.0 Sodium Level 136 Potassium Level 4.1 Chloride Level 95 L Carbon Dioxide Level 31 Anion Gap 14 Blood Urea Nitrogen 16 # Creatinine 3.11 #H Glucose Level 215 # Calcium Level 8.5 Phosphorus Level 3.4 Magnesium Level 1.9 Total Bilirubin 0.0 L Direct Bilirubin 0.00 Indirect Bilirubin 0.0 Aspartate Amino Transf (AST/SGOT) 28 Alanine Aminotransferase (ALT/SGPT) 35 Alkaline Phosphatase 169 H Total Protein 6.5 # Albumin 3.3 Globulin 3.20 Albumin/Globulin Ratio 1.03 Medications Medications Current Medications Ondansetron HCl (Zofran Inj) 4 mg Q6H PRN IV NAUSEA AND/OR VOMITING Last administered on 05/18/17 22:17; Admin Dose 4 MG; Start 05/18/17 at 01:30 Acetaminophen (Tylenol Tab) 650 mg Q6H PRN PO PAIN LEVEL 1-3 OR FEVER; Start at 01:30 Famotidine (Pepcid Iv) 20 mg DAILY IV Last administered on 05/19/17 08:45; Admin Dose 20 MG; Start 05/18/17 at 01:30 Allopurinol (Zyloprim) 100 mg DAILY PO Last administered on 05/19/17 08:46; Admin Dose 100 MG; Start 05/18/17 at 09:00 Nifedipine (Procardia Xl) 60 mg DAILY PO Last administered on 05/19/17 08:46; Admin Dose 60 MG; Start 05/18/17 at 09:00 Sevelamer HCl (Renagel) 1,600 mg TID PO Last administered on 05/19/17 13:36; Admin Dose 1,600 MG; Start 05/18/17 at 09:00 Multivit/Ca Carb/ B Cmplx/FA/Prenat (Galilea-Jaci) 1 tab DAILY PO Last administered on 05/19/17 08:46; Admin Dose 1 TAB; Start 05/18/17 at 09:00 Losartan Potassium (Cozaar) 100 mg DAILY PO Last administered on 05/19/17 08:46 ; Admin Dose 100 MG; Start 05/18/17 at 09:00 Zolpidem Tartrate 5 mg 5 mg HS PRN PO INSOMNIA; Start 05/18/17 at 09:00 Dextrose/Sodium Chloride (D5-1/2ns) 1,000 ml @ 50 mls/hr Q20H IV Last administered on 05/19/17 03:48; Admin Dose 50 MLS/HR; Start 05/18/17 at 08:30 Lidocaine (Lidocaine 5% Oint) 1 applic Q4 PRN TOP FACE PAIN Last administered on 05/18/17 15:20; Admin Dose 1 APPLIC; Start 05/18/17 at 12:30 Metoclopramide HCl (Reglan) 10 mg Q6H PRN IV NAUSEA AND/OR VOMITING Last administered on 05/18/17 13:58; Admin Dose 10 MG; Start 05/18/17 at 13:00 ALFA LUNA MD May 19, 2017 17:46
[2017-05-19 19:51] VITALS: BP 108/53; RESP 20
[2017-05-20] MEDS: DEXTROSE 5%-0.45% NACL 1,000 ML IV SCH (00:01)
[2017-05-20 01:42] VITALS: BP 125/60; RESP 18
[2017-05-20 05:55] LABS: BASOPHIL # 0.1 10^3/ul (0.0-0.1); BASOPHILS % 0.7 % (0.0-2.0); EOSINOPHILS # 0.1 10^3/ul (0.0-0.5); EOSINOPHILS % 1.7 % (0.0-7.0); HEMATOCRIT 30.4 % (37.0-47.0); HEMOGLOBIN 9.6 g/dl (12.0-16.0); LYMPHOCYTES # 1.7 10^3/ul (0.8-2.9); LYMPHOCYTES % 20.8 % (15.0-51.0); MEAN CORPUSCULAR HEMOGLOBIN 31.9 pg (29.0-33.0); MEAN CORPUSCULAR HGB CONC 31.6 g/dl (32.0-37.0); MEAN PLATELET VOLUME 9.5 fl (7.4-10.4); MONOCYTE # 0.9 10^3/ul (0.3-0.9); MONOCYTES % 10.9 % (0.0-11.0); NEUTROPHILS % 63.8 % (39.0-77.0); PLATELET COUNT 197 10^3/UL (140-415); RED BLOOD COUNT 3.01 10^6/ul (4.20-5.40); RED CELL DISTRIBUTION WIDTH 17.2 % (11.5-14.5); WHITE BLOOD COUNT 8.2 10^3/ul (4.8-10.8)
[2017-05-20 06:32] LABS: ALBUMIN 3.5 g/dl (3.3-4.9); CALCIUM 8.5 mg/dl (8.4-10.2); CREATININE 4.31 mg/dl (0.44-1.00); PHOSPHORUS 3.5 mg/dl (2.5-4.9); POTASSIUM 4.6 mmol/L (3.5-5.1)
[2017-05-20] MEDS: ALLOPURINOL 100 MG TAB PO SCH (08:02)
[2017-05-20] MEDS: FAMOTIDINE 20 MG INJ IV SCH (08:02)
[2017-05-20] MEDS: MULTIVIT/CA CARB/B CMPLX/FA TAB PO SCH (08:02)
[2017-05-20] MEDS: SEVELAMER 800 MG TAB PO SCH ×3 (08:02→20:42)
[2017-05-20] MEDS: LIDOCAINE 5% 35 GM OINT TOP SCH ×3 (08:02→17:08)
[2017-05-20] MEDS: LOSARTAN 50 MG TAB PO SCH (08:04)
[2017-05-20] MEDS: NIFEdipine (XL) 60 MG TAB PO SCH (08:04)
[2017-05-20 08:07] VITALS: BP 163/70; RESP 18
[2017-05-20] MEDS ORDERED: IOHEXOL 100 ML ONE (09:15)
[2017-05-20] MEDS ORDERED: SOD CHLORIDE 0.9% 100 ML ONE (09:15)
--- NOTE | 2017-05-20 09:15 | PN ---
Date/Time of Note Date/Time of Note DATE: 05/20/17 TIME: 09:14 Assessment/Plan VTE Prophylaxis VTE Prophylaxis Intervention: other Lines/Catheters IV Catheter Type (from Nrs): Peripheral IV Urinary Cath still in place: No Assessment/Plan Assessment/Plan 1. Trigeminal neuralgia on the left jaw. - Neurology on board and recommendations appreciated. CTA performed to rule out vascular abnormalities and results still pending - Doing well on topical Lidocaine before meals - d/c Lyrica secondary to oversedation - Follow up with Neurology as outpatient, however, daughter does not plan to f/ up - Discussed botox tx and daughter inquired about acupuncture 2. End-stage renal disease, on HD 3. Generalized weakness with dizziness, nausea, vomiting - Resolved. - etiology medication induced 4. Disposition - Will be ready for discharge after dialysis if no abnormalities on CTA Subjective 24 Hr Interval Summary Free Text/Dictation Patient doing well and family at bedside. Awake and oriented. Denies any complaints and no acute overnight events. CTA performed today but results still pending. Patient anxious to know results. Exam/Review of Systems Vital Signs Vitals Vital Signs Date Time Temp Pulse Resp B/P Pulse Ox O2 Delivery O2 Flow Rate FiO2 05/20/17 08:07 98.1 50 18 163/70 100 05/20/17 02:00 Nasal Cannula 2.0 Intake and Output 05/19/17 05/19/17 05/20/17 15:00 23:00 07:00 Intake Total 1580 ml 550 ml Balance 1580 ml 550 ml Exam General: NAD, awake and interactive CVS: regular rate and rhythm. Systolic murmur Lungs: CTA b/l. no wheezes or rhonchi Abd: soft, NT, ND, +BS, no rebound or guarding Ext: no edema, cyanosis or clubbing Neuro: AAOx3, no focal deficits, nontender palpation of left cheek Results Result Diagram: 05/20/1723 05/20/1723 Results 24 hrs Laboratory Tests Test 05/20/17 05:23 White Blood Count 8.2 Red Blood Count 3.01 L Hemoglobin 9.6 L Hematocrit 30.4 L Mean Corpuscular Volume 101.0 Mean Corpuscular Hemoglobin 31.9 Mean Corpuscular Hemoglobin Concent 31.6 L Red Cell Distribution Width 17.2 H Platelet Count 197 Mean Platelet Volume 9.5 Neutrophils % 63.8 Lymphocytes % 20.8 Monocytes % 10.9 Eosinophils % 1.7 Basophils % 0.7 Nucleated Red Blood Cells % 0.0 Neutrophils # (Manual) 5.3 Lymphocytes # 1.7 Monocytes # 0.9 Eosinophils # 0.1 Basophils # 0.1 Nucleated Red Blood Cells # 0.0 Sodium Level 131 L Potassium Level 4.6 Chloride Level 94 L Carbon Dioxide Level 28 Anion Gap 14 Blood Urea Nitrogen 30 #H Creatinine 4.31 #H Glucose Level 101 # Calcium Level 8.5 Phosphorus Level 3.5 Magnesium Level 2.0 Albumin 3.5 Medications Medications Current Medications Ondansetron HCl (Zofran Inj) 4 mg Q6H PRN IV NAUSEA AND/OR VOMITING Last administered on 05/18/17 22:17; Admin Dose 4 MG; Start 05/18/17 at 01:30 Acetaminophen (Tylenol Tab) 650 mg Q6H PRN PO PAIN LEVEL 1-3 OR FEVER; Start at 01:30 Famotidine (Pepcid Iv) 20 mg DAILY IV Last administered on 05/20/17 08:02; Admin Dose 20 MG; Start 05/18/17 at 01:30 Allopurinol (Zyloprim) 100 mg DAILY PO Last administered on 05/20/17 08:02; Admin Dose 100 MG; Start 05/18/17 at 09:00 Nifedipine (Procardia Xl) 60 mg DAILY PO Last administered on 05/20/17 08:04; Admin Dose 60 MG; Start 05/18/17 at 09:00 Sevelamer HCl (Renagel) 1,600 mg TID PO Last administered on 05/20/17 08:02; Admin Dose 1,600 MG; Start 05/18/17 at 09:00 Multivit/Ca Carb/ B Cmplx/FA/Prenat (Galilea-Jaci) 1 tab DAILY PO Last administered on 05/20/17 08:02; Admin Dose 1 TAB; Start 05/18/17 at 09:00 Losartan Potassium (Cozaar) 100 mg DAILY PO Last administered on 05/20/17 08: 04; Admin Dose 100 MG; Start 05/18/17 at 09:00 Zolpidem Tartrate 5 mg 5 mg HS PRN PO INSOMNIA; Start 05/18/17 at 09:00 Dextrose/Sodium Chloride (D5-1/2ns) 1,000 ml @ 50 mls/hr Q20H IV Last administered on 05/20/17 00:01; Admin Dose 50 MLS/HR; Start 05/18/17 at 08:30 Lidocaine (Lidocaine 5% Oint) 1 applic Q4 PRN TOP FACE PAIN Last administered on 05/18/17 15:20; Admin Dose 1 APPLIC; Start 05/18/17 at 12:30 Metoclopramide HCl (Reglan) 10 mg Q6H PRN IV NAUSEA AND/OR VOMITING Last administered on 05/18/17 13:58; Admin Dose 10 MG; Start 05/18/17 at 13:00 EVERARDO VELASQUEZ MD May 20, 2017 09:15
[2017-05-20 14:11] VITALS: BP 176/76; RESP 18
--- NOTE | 2017-05-20 15:02 | CONS ---
Date/Time of Note Date/Time of Note DATE: 05/20/17 TIME: 15:00 Assessment/Plan Assessment/Plan Additional Assessment/Plan * trigeminal neuralgia: on lyrica and lidocaine cream and better. appreciate neuro eval * n/v; resolved. eating more. dc ivf * esrd: on hd m/w/f. next hd in am * dizziness: much better * anemia: stable. epogen prn * htn: bp fair control. nifedipine dose increased * * pt geetal be ready for dc post hd in am Consultation Date/Type/Reason Admit Date/Time May 19, 2017 at 17:56 Initial Consult Date 05/18/17 Type of Consultation: Neurology Referring Provider: PHOEBE WILSON MD 24 HR Interval Summary Free Text/Dictation feels better. eating more. pain better with lidocaine cream Exam/Review of Systems Vital Signs Vitals Vital Signs Date Time Temp Pulse Resp B/P Pulse Ox O2 Delivery O2 Flow Rate FiO2 05/20/17 14:11 98.1 55 18 176/76 96 05/20/17 08:30 Nasal Cannula 2.0 Intake and Output 05/19/17 05/19/17 05/20/17 15:00 23:00 07:00 Intake Total 1580 ml 550 ml Balance 1580 ml 550 ml Exam Constitutional: alert, oriented Psych: no complaints Head: normocephalic Eyes: nl conjunctiva Neck: non-tender, supple Respiratory: diminished breath sounds Cardiovascular: edema, regular rate and rhythm Gastrointestinal: non-tender, soft Results Result Diagram: 05/20/17 0523 05/20/17 0523 Results 24 hrs Laboratory Tests Test 05/20/17 05:23 White Blood Count 8.2 Red Blood Count 3.01 L Hemoglobin 9.6 L Hematocrit 30.4 L Mean Corpuscular Volume 101.0 Mean Corpuscular Hemoglobin 31.9 Mean Corpuscular Hemoglobin Concent 31.6 L Red Cell Distribution Width 17.2 H Platelet Count 197 Mean Platelet Volume 9.5 Neutrophils % 63.8 Lymphocytes % 20.8 Monocytes % 10.9 Eosinophils % 1.7 Basophils % 0.7 Nucleated Red Blood Cells % 0.0 Neutrophils # (Manual) 5.3 Lymphocytes # 1.7 Monocytes # 0.9 Eosinophils # 0.1 Basophils # 0.1 Nucleated Red Blood Cells # 0.0 Sodium Level 131 L Potassium Level 4.6 Chloride Level 94 L Carbon Dioxide Level 28 Anion Gap 14 Blood Urea Nitrogen 30 #H Creatinine 4.31 #H Glucose Level 101 # Calcium Level 8.5 Phosphorus Level 3.5 Magnesium Level 2.0 Albumin 3.5 Medications Medications Current Medications Ondansetron HCl (Zofran Inj) 4 mg Q6H PRN IV NAUSEA AND/OR VOMITING Last administered on 05/18/17 22:17; Admin Dose 4 MG; Start 05/18/17 at 01:30 Acetaminophen (Tylenol Tab) 650 mg Q6H PRN PO PAIN LEVEL 1-3 OR FEVER; Start at 01:30 Famotidine (Pepcid Iv) 20 mg DAILY IV Last administered on 05/20/17 08:02; Admin Dose 20 MG; Start 05/18/17 at 01:30 Allopurinol (Zyloprim) 100 mg DAILY PO Last administered on 05/20/17 08:02; Admin Dose 100 MG; Start 05/18/17 at 09:00 Nifedipine (Procardia Xl) 60 mg DAILY PO Last administered on 05/20/17 08:04; Admin Dose 60 MG; Start 05/18/17 at 09:00 Sevelamer HCl (Renagel) 1,600 mg TID PO Last administered on 05/20/17 11:58; Admin Dose 1,600 MG; Start 05/18/17 at 09:00 Multivit/Ca Carb/ B Cmplx/FA/Prenat (Galilea-Jaci) 1 tab DAILY PO Last administered on 05/20/17 08:02; Admin Dose 1 TAB; Start 05/18/17 at 09:00 Losartan Potassium (Cozaar) 100 mg DAILY PO Last administered on 05/20/17 08: 04; Admin Dose 100 MG; Start 05/18/17 at 09:00 Zolpidem Tartrate 5 mg 5 mg HS PRN PO INSOMNIA; Start 05/18/17 at 09:00 Dextrose/Sodium Chloride (D5-1/2ns) 1,000 ml @ 50 mls/hr Q20H IV Last administered on 05/20/17 00:01; Admin Dose 50 MLS/HR; Start 05/18/17 at 08:30 Lidocaine (Lidocaine 5% Oint) 1 applic Q4 PRN TOP FACE PAIN Last administered on 05/18/17 15:20; Admin Dose 1 APPLIC; Start 05/18/17 at 12:30 Metoclopramide HCl (Reglan) 10 mg Q6H PRN IV NAUSEA AND/OR VOMITING Last administered on 05/18/17 13:58; Admin Dose 10 MG; Start 05/18/17 at 13:00 ALFA LUNA MD May 20, 2017 15:02
[2017-05-20 19:36] VITALS: BP 124/58; RESP 18
[2017-05-21] VITALS (9 sets, daily range): BP systolic 129–176; BP diastolic 49–71; PULSE 55–61; RESP 16
[2017-05-21] MEDS: LIDOCAINE 5% 35 GM OINT TOP SCH ×2 (08:13→12:43)
[2017-05-21] MEDS: MULTIVIT/CA CARB/B CMPLX/FA TAB PO SCH (08:14)
[2017-05-21] MEDS: ALLOPURINOL 100 MG TAB PO SCH (08:14)
[2017-05-21] MEDS: FAMOTIDINE 20 MG INJ IV SCH (08:15)
[2017-05-21] MEDS: SEVELAMER 800 MG TAB PO SCH ×2 (08:15→12:42)
[2017-05-21] MEDS: LOSARTAN 50 MG TAB PO SCH (08:16)
[2017-05-21] MEDS ORDERED: NIFEdipine (XL) 90 MG TAB PO SCH (09:00)
--- NOTE | 2017-05-21 09:33 | RADRPT ---
PROCEDURE: CTA Brain. CLINICAL INDICATION: Trigeminal neuralgia. Evaluate for vascular compression. TECHNIQUE: The study was performed utilizing a multi-slice multidetector CT scanner. Direct spiral 0.65 mm axial sections were obtained through the intracranial vasculature with the use of 85 cc of Omnipaque 350 nonionic intravenous contrast material. Coronal and sagittal MPRs as well as maximal intensity projection reformations were obtained. 3-D MIP images were also reviewed. The images were reviewed on a PACS workstation. The CTDIvol is 130.6, and 27.29 mGy and the DLP is 534.57 mGycm. One or more of the following dose reduction techniques were used: Automated exposure control Adjustment of the mA and/or kV according to patient size. Use of iterative reconstruction technique. COMPARISON: No prior studies are available for comparison. FINDINGS: Mild calcific plaques are seen involving the cavernous and supraclinoid ICA with no hemodynamically significant stenosis. There is a right PEDIATRIC CLINICAL NURSE SPECIALIST. The anterior cerebral and middle cerebral arteries are patent and normal in caliber. 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 The verte bral arteries, basilar artery, superior cerebellar arteries, and posterior cerebral arteries are all normal in appearance. No aneurysm is identified. No vascular malformation is seen. IMPRESSION: 1. No cerebral aneurysms or vascular malformations. 2. No vascular loop is identified at the expected location of the trigeminal nerve; however the vis ualization on CT is limited. Recommend MRI brain/MRA if there is persistent clinical concern. 3. Mild intracranial atherosclerosis without hemodynamically significant stenosis. RPTAT: BB .Vicente Lorenz MD, MD Date Time Electronically viewed and signed by .Vicente Lorenz MD, MD on 05/21/2017 09:32 .O/
--- NOTE | 2017-05-21 11:29 | CONS ---
Date/Time of Note Date/Time of Note DATE: 05/21/17 TIME: 11:27 Consult Date/Type/Reason Admit Date/Time May 19, 2017 at 17:56 Initial Consult Date 05/18/17 Type of Consultation: Neurology Reason for Consultation eval for trigeminal neuralgia Ordering Provider: PHOEBE WILSON MD Subjective improved symptoms with lidocaine receiving HD at bedside today Objective Vital Signs Date Time Temp Pulse Resp B/P Pulse Ox O2 Delivery O2 Flow Rate FiO2 05/21/17 07:30 97.5 50 16 159/58 96 05/20/17 08:30 Nasal Cannula 2.0 Intake and Output 05/20/17 05/20/17 05/21/17 15:00 23:00 07:00 Intake Total 550 ml Balance 550 ml Exam awake and alert oriented to self hospital and families NAD resting in bed receiving dialysis CN: II-XII intact Motor full strength in all extremities sensory intact throughout Coord intact no tremors Results/Medications Result Diagram: 05/21/17 0900 05/21/17 0900 Results 24 hrs Laboratory Tests Test 05/21/17 09:00 White Blood Count 8.1 Red Blood Count 2.89 L Hemoglobin 9.4 L Hematocrit 29.3 L Mean Corpuscular Volume 101.4 H Mean Corpuscular Hemoglobin 32.5 Mean Corpuscular Hemoglobin Concent 32.1 Red Cell Distribution Width 17.2 H Platelet Count 210 Mean Platelet Volume 9.1 Neutrophils % 65.5 Lymphocytes % 19.3 Monocytes % 9.2 Eosinophils % 2.6 Basophils % 0.5 Nucleated Red Blood Cells % 0.0 Neutrophils # (Manual) 5.3 Lymphocytes # 1.6 Monocytes # 0.7 Eosinophils # 0.2 Basophils # 0.0 Nucleated Red Blood Cells # 0.0 Sodium Level 130 L Potassium Level 4.6 Chloride Level 95 L Carbon Dioxide Level 26 Anion Gap 14 Blood Urea Nitrogen 46 #H Creatinine 4.94 H Glucose Level 120 Calcium Level 8.4 Total Bilirubin 0.0 L Direct Bilirubin 0.00 Indirect Bilirubin 0.0 Aspartate Amino Transf (AST/SGOT) 22 Alanine Aminotransferase (ALT/SGPT) 23 Alkaline Phosphatase 136 H Total Protein 6.1 Albumin 3.0 L Globulin 3.10 Albumin/Globulin Ratio 0.96 Medications Current Medications Ondansetron HCl (Zofran Inj) 4 mg Q6H PRN IV NAUSEA AND/OR VOMITING Last administered on 05/18/17 22:17; Admin Dose 4 MG; Start 05/18/17 at 01:30 Acetaminophen (Tylenol Tab) 650 mg Q6H PRN PO PAIN LEVEL 1-3 OR FEVER; Start at 01:30 Famotidine (Pepcid Iv) 20 mg DAILY IV Last administered on 05/21/17 08:15; Admin Dose 20 MG; Start 05/18/17 at 01:30 Allopurinol (Zyloprim) 100 mg DAILY PO Last administered on 05/21/17 08:14; Admin Dose 100 MG; Start 05/18/17 at 09:00 Sevelamer HCl (Renagel) 1,600 mg TID PO Last administered on 05/21/17 08:15; Admin Dose 1,600 MG; Start 05/18/17 at 09:00 Multivit/Ca Carb/ B Cmplx/FA/Prenat (Galilea-Jaci) 1 tab DAILY PO Last administered on 05/21/17 08:14; Admin Dose 1 TAB; Start 05/18/17 at 09:00 Losartan Potassium (Cozaar) 100 mg DAILY PO Last administered on 05/20/17 08: 04; Admin Dose 100 MG; Start 05/18/17 at 09:00 Zolpidem Tartrate (Ambien) 5 mg HS PRN PO INSOMNIA Last administered on 20:42; Admin Dose 5 MG; Start 05/18/17 at 09:00 Lidocaine (Lidocaine 5% Oint) 1 applic Q4 PRN TOP FACE PAIN Last administered on 05/18/17 15:20; Admin Dose 1 APPLIC; Start 05/18/17 at 12:30 Metoclopramide HCl (Reglan) 10 mg Q6H PRN IV NAUSEA AND/OR VOMITING Last administered on 05/18/17 13:58; Admin Dose 10 MG; Start 05/18/17 at 13:00 Nifedipine (Procardia Xl) 90 mg DAILY PO ; Start 05/21/17 at 09:00 Assessment/Plan Chief Complaint/Hosp Course 87 year old female with history of left jaw pain, present only on mastication, symptoms worsening with no relief with gabapentin, tramadol, baclofen. Unclear if this represents trigeminal neuralgia vs. TMJ. ESR: 47 CTA was done to rule out possibility of vascular loop- negative. DC Lyrica due to oversedation her sx are improving with Lidocaine may continue symptoms improved overall plan for d/c outpatient follow up for further pain management Problems: MARVIN DE LA FUENTE MD May 21, 2017 11:29
--- NOTE | 2017-05-21 11:52 | PDOCDIS ---
Discharge Instructions CONDITION Patient Condition: Stable HOME CARE INSTRUCTIONS: Special Diet: Renal FOLLOW UP/APPOINTMENTS Follow-up Plan 1.Follow up with primary care physician in 1 week-Needs repeat thyroid function test in 2 weeks and follow-up with primary care physician regarding whether patient needs treatment for hyperthyroidism. If you don't have one please let someone know, we can give you resources that may help you pick one. You may also call your insurance company to assign one to you. Review your medication list with your nurse before leaving and if you need new prescriptions please let your nurse know. I may have made changes to your home medications or given you new prescriptions, please let your primary doctor know as well. Stay compliant with your medications and report any side effects to your PCP or pharmacist. Return to the ER if you have any concerns and cannot reach your doctors or call your insurance company, they usually have a nurse that can help you. 2. Call 911 or go to the nearest emergency room if experiencing loss of consciousness, dizziness, chest pain, shortness of breath, vomiting/abdominal pain, speech difficulties, motor weakness or any unusual symptoms. REFERRALS Other Referrals RECOMMEND FOLLOW-UP WITH OUTPATIENT NEUROLOGY SERVICES. YANNICK SANCHEZ NP May 21, 2017 11:52
[2017-05-21] MEDS ORDERED: NIFE90TA PO (11:54)
[2017-05-21] MEDS ORDERED: LOSA50TA2 PO (11:54)
[2017-05-21] MEDS ORDERED: LIDO35.415 TOP (11:54)
--- NOTE | 2017-05-21 13:45 | CONS ---
Date/Time of Note Date/Time of Note DATE: 05/21/17 TIME: 13:40 Assessment/Plan Assessment/Plan Chief Complaint/Hosp Course 1. ESRD , she was dialyzed this morning . 2. nausea and vomiting have resolved . 3. trigeminal neuralgia is controlled on topical lidocaine . 4. she can be discharged to home today . Problems: Consultation Date/Type/Reason Admit Date/Time May 19, 2017 at 17:56 Initial Consult Date 05/18/17 Type of Consultation: Neurology Referring Provider: PHOEBE WILSON MD 24 HR Interval Summary Free Text/Dictation She is feeling better . She denies nausea or vomiting . Her facial pain is controlled with topical lidocaine . Constitutional: improved, no complaints Exam/Review of Systems Vital Signs Vitals Vital Signs Date Time Temp Pulse Resp B/P Pulse Ox O2 Delivery O2 Flow Rate FiO2 05/21/17 10:30 60 20 05/21/17 07:30 97.5 159/58 96 05/20/17 08:30 Nasal Cannula 2.0 Intake and Output 05/20/17 05/20/17 05/21/17 14:59 22:59 06:59 Intake Total 300 ml 250 ml Balance 300 ml 250 ml Exam Constitutional: alert, frail, oriented ENMT: nl external ears & nose, nl lips & teeth, nl nasal mucosa & septum Neck: non-tender, supple Respiratory: clear to auscultation, normal air movement Cardiovascular: regular rate and rhythm Gastrointestinal: soft Musculoskeletal: nl extremities to inspection Results Result Diagram: 05/21/17 0900 05/21/17 0900 Results 24 hrs Laboratory Tests Test 05/21/17 09:00 White Blood Count 8.1 Red Blood Count 2.89 L Hemoglobin 9.4 L Hematocrit 29.3 L Mean Corpuscular Volume 101.4 H Mean Corpuscular Hemoglobin 32.5 Mean Corpuscular Hemoglobin Concent 32.1 Red Cell Distribution Width 17.2 H Platelet Count 210 Mean Platelet Volume 9.1 Neutrophils % 65.5 Lymphocytes % 19.3 Monocytes % 9.2 Eosinophils % 2.6 Basophils % 0.5 Nucleated Red Blood Cells % 0.0 Neutrophils # (Manual) 5.3 Lymphocytes # 1.6 Monocytes # 0.7 Eosinophils # 0.2 Basophils # 0.0 Nucleated Red Blood Cells # 0.0 Sodium Level 130 L Potassium Level 4.6 Chloride Level 95 L Carbon Dioxide Level 26 Anion Gap 14 Blood Urea Nitrogen 46 #H Creatinine 4.94 H Glucose Level 120 Calcium Level 8.4 Total Bilirubin 0.0 L Direct Bilirubin 0.00 Indirect Bilirubin 0.0 Aspartate Amino Transf (AST/SGOT) 22 Alanine Aminotransferase (ALT/SGPT) 23 Alkaline Phosphatase 136 H Total Protein 6.1 Albumin 3.0 L Globulin 3.10 Albumin/Globulin Ratio 0.96 Medications Medications Current Medications Ondansetron HCl (Zofran Inj) 4 mg Q6H PRN IV NAUSEA AND/OR VOMITING Last administered on 05/18/17 22:17; Admin Dose 4 MG; Start 05/18/17 at 01:30 Acetaminophen (Tylenol Tab) 650 mg Q6H PRN PO PAIN LEVEL 1-3 OR FEVER; Start at 01:30 Famotidine (Pepcid Iv) 20 mg DAILY IV Last administered on 05/21/17 08:15; Admin Dose 20 MG; Start 05/18/17 at 01:30 Allopurinol (Zyloprim) 100 mg DAILY PO Last administered on 05/21/17 08:14; Admin Dose 100 MG; Start 05/18/17 at 09:00 Sevelamer HCl (Renagel) 1,600 mg TID PO Last administered on 05/21/17 12:42; Admin Dose 1,600 MG; Start 05/18/17 at 09:00 Multivit/Ca Carb/ B Cmplx/FA/Prenat (Galilea-Jaci) 1 tab DAILY PO Last administered on 05/21/17 08:14; Admin Dose 1 TAB; Start 05/18/17 at 09:00 Losartan Potassium (Cozaar) 100 mg DAILY PO Last administered on 05/20/17 08: 04; Admin Dose 100 MG; Start 05/18/17 at 09:00 Zolpidem Tartrate (Ambien) 5 mg HS PRN PO INSOMNIA Last administered on 20:42; Admin Dose 5 MG; Start 05/18/17 at 09:00 Lidocaine (Lidocaine 5% Oint) 1 applic Q4 PRN TOP FACE PAIN Last administered on 05/18/17 15:20; Admin Dose 1 APPLIC; Start 05/18/17 at 12:30 Metoclopramide HCl (Reglan) 10 mg Q6H PRN IV NAUSEA AND/OR VOMITING Last administered on 05/18/17t 13:58; Admin Dose 10 MG; Start 05/18/17 at 13:00 Nifedipine (Procardia Xl) 90 mg DAILY PO ; Start 05/21/17 at 09:00 PHOEBE WILSON MD May 21, 2017 13:45
--- NOTE | 2017-05-21 14:48 | DS ---
Date/Time of Note Date/Time of Note DATE: 05/21/17 TIME: 14:46 Discharge Summary Admission/Discharge Info Admit Date/Time May 19, 2017 at 17:56 Discharge Date/Time May 21, 2017 at 14:30 Discharge Diagnosis 1. Facial pain most likely secondary to trigeminal neuralgia Vs TMJ. Symptoms resolved. 2. End-stage renal disease, on HD 2. Hypertension. Stable Patient Condition: Stable Consults ,nephrrology ,Neuro Procedures 05/20/2017. Head CTA. IMPRESSION: 1. No cerebral aneurysms or vascular malformations. 2. No vascular loop is identified at the expected location of the trigeminal nerve; however the visualization on CT is limited. Recommend MRI brain/MRA if there is persistent clinical concern. 3. Mild intracranial atherosclerosis without hemodynamically significant stenosis. Hospital Course This is a 87-year-old female with a past medical history of end-stage renal disease on dialysis Sunday, hypertension, who was brought to the emergency room with complaints of left jaw pain with mastication without relief from pain medications which has been going on for a few days. Patient was admitted for further evaluation. Patient was started on hemodialysis per nephrology recommendations. Patient was evaluated by neurology. She was continued on trial dose of Lyrica. However patient was noted with oversedation and therefore it was discontinued. She was then continued on lidocaine topical treatment CTA was negative for any vascular issues. Patient symptoms overall improved with topical lidocaine. Pressure was controlled. Function was monitored closely and remained stable. At this time, most likely patient's presenting complaints likely trigeminal neuralgia versus TMJ. Patient feels back to her baseline. Patient was also noted with hyperthyroid state without any clinical symptoms. She was advised to follow-up with primary care physician and to repeat thyroid function test in 2 weeks and start treatment if indicated. There is no further symptoms and patient is medically stable for discharge with outpatient follow-up. Disposition: Patient will be discharged home with outpatient primary care follow -up. Patient and family was instructed to follow-up with outpatient neurology service if symptoms recur. Patient and family verbalized discharge instructions. Family 60 minutes was spent in coordinating the discharge on this patient. Case discussed with Dr. Baugh. Home Meds Active Scripts Lidocaine (LIDOCAINE) 35.44 Gm Oint...g., 1 APPLIC TOP Q4 Y for FACE PAIN, #1 TUB Prov:SANCHEZ,YANNICK V. SENIOR ATTORNEY 05/21/17 Nifedipine (Procardia Xl) 90 Mg Tab.er.24, 90 MG PO DAILY, #30 TAB Prov:SANCHEZRADHAYANNICK V. SENIOR ATTORNEY 05/21/17 Losartan Potassium* (Cozaar*) 50 Mg Tablet, 100 MG PO DAILY, #30 TAB Prov:SANCHEZRADHAYANNICK V. SENIOR ATTORNEY 05/21/17 Reported Medications Temazepam* (Temazepam*) 7.5 Mg Capsule, 7.5 MG PO HS Y for INSOMNIA, CAP 05/17/17 Ergocalciferol* (Drisdol* (Vitamin D2)) 50,000 Unit Capsule, 10955 UNIT PO Q14D , CAP 05/19/16 Folic Acid/Vitamin B Comp W-C (Nephrocaps Capsule) 1 Mg Capsule, 1 MG PO DAILY, CAP 05/19/16 Sevelamer Hcl* (Renagel*) 800 Mg Tablet, 1600 MG PO WITH MEALS TID, TAB 05/19/16 Allopurinol* (Allopurinol*) 100 Mg Tablet, 100 MG PO DAILY, TAB 05/19/16 Folic Acid* (Folic Acid*) 1 Mg Tablet, 1 MG PO DAILY, TAB 05/19/16 Discontinued Reported Medications Amiodarone Hcl* (Amiodarone Hcl*) 200 Mg Tablet, 100 MG PO DAILY, #30 TAB 05/19/16 Olmesartan Medoxomil (Benicar) 40 Mg Tablet, 40 MG PO DAILY, #30 TAB 05/19/16 Nifedipine* (Nifedipine ER*) 60 Mg Tablet.sa, 60 MG PO DAILY, TAB.SA 05/19/16 Gluc Burrell/Chondro Burrell A/Vit C/Mn (Glucosamine 1,500 Complex Cp) 1 Each Capsule, 1 EACH PO, CAP 05/19/16 Follow-up Plan HOME CARE INSTRUCTIONS: Special Diet: Renal FOLLOW UP/APPOINTMENTS Follow-up Plan 1.Follow up with primary care physician in 1 week-Needs repeat thyroid function test in 2 weeks and follow-up with primary care physician regarding whether patient needs treatment for hyperthyroidism. If you don't have one please let someone know, we can give you resources that may help you pick one. You may also call your insurance company to assign one to you. Review your medication list with your nurse before leaving and if you need new prescriptions please let your nurse know. I may have made changes to your home medications or given you new prescriptions, please let your primary doctor know as well. Stay compliant with your medications and report any side effects to your PCP or pharmacist. Return to the ER if you have any concerns and cannot reach your doctors or call your insurance company, they usually have a nurse that can help you. 2. Call 911 or go to the nearest emergency room if experiencing loss of consciousness, dizziness, chest pain, shortness of breath, vomiting/abdominal pain, speech difficulties, motor weakness or any unusual symptoms. REFERRALS Other Referrals RECOMMEND FOLLOW-UP WITH OUTPATIENT NEUROLOGY SERVICES. Primary Care Provider Reagan Alvarez MD Pending Labs Laboratory Tests Test 05/21/17 09:00 White Blood Count 8.110^3/ul (4.8-10.8) Red Blood Count 2.8910^6/ul (4.20-5.40) Hemoglobin 9.4g/dl (12.0-16.0) Hematocrit 29.3% (37.0-47.0) Mean Corpuscular Volume 101.4fl (82.0-101.0) Mean Corpuscular Hemoglobin 32.5pg (29.0-33.0) Mean Corpuscular Hemoglobin Concent 32.1g/dl (32.0-37.0) Red Cell Distribution Width 17.2% (11.5-14.5) Platelet Count 38414^3/UL (140-415) Mean Platelet Volume 9.1fl (7.4-10.4) Neutrophils % 65.5% (39.0-77.0) Lymphocytes % 19.3% (15.0-51.0) Monocytes % 9.2% (0.0-11.0) Eosinophils % 2.6% (0.0-7.0) Basophils % 0.5% (0.0-2.0) Nucleated Red Blood Cells % 0.0/100WBC (0.0-0.0) Neutrophils # (Manual) 5.310^3/ul (1.7-7.5) Lymphocytes # 1.610^3/ul (0.8-2.9) Monocytes # 0.710^3/ul (0.3-0.9) Eosinophils # 0.210^3/ul (0.0-0.5) Basophils # 0.010^3/ul (0.0-0.1) Nucleated Red Blood Cells # 0.010^3/ul (0.0-0.0) Sodium Level 130mmol/L (135-144) Potassium Level 4.6mmol/L (3.5-5.1) Chloride Level 95mmol/L (97-110) Carbon Dioxide Level 26mmol/L (21-31) Anion Gap 14 (8-16) Blood Urea Nitrogen 46mg/dl (7-20) Creatinine 4.94mg/dl (0.44-1.00) Glucose Level 120mg/dl (70-220) Calcium Level 8.4mg/dl (8.4-10.2) Total Bilirubin 0.0mg/dl (0.2-1.3) Direct Bilirubin 0.00mg/dl (0.00-0.20) Indirect Bilirubin 0.0mg/dl (0-1.1) Aspartate Amino Transf (AST/SGOT) 22IU/L (15-46) Alanine Aminotransferase (ALT/SGPT) 23IU/L (13-69) Alkaline Phosphatase 136IU/L (42-121) Total Protein 6.1g/dl (6.1-8.1) Albumin 3.0g/dl (3.3-4.9) Globulin 3.10g/dl (1.3-3.2) Albumin/Globulin Ratio 0.96 YANNICK SANCHEZ V. SENIOR ATTORNEY May 21, 2017 14:48
== END 2017-05-21 14:30 | disposition home or self-care (01) | DRG 73 ==
LOC: E/R 19:46 → MS2 23:58 → OBSVTOIN 05-19 17:56
PROVIDERS: ADMIT Family Medicine; ATTEND Family Medicine
PROC: 5A1D00Z (ICD-10-PCS; principal; 2017-05-21)
DX: G50.0 Trigeminal neuralgia (principal); N18.6 End stage renal disease; E11.22 Type 2 diabetes mellitus with diabetic chronic kidney disease; I12.0 Hypertensive chronic kidney disease with stage 5 chronic kidney disease or end stage renal disease; E86.0 Dehydration; Z99.2 Dependence on renal dialysis; Z95.0 Presence of cardiac pacemaker; R74.8 Abnormal levels of other serum enzymes
CPT/HCPCS: 36415; 70450; 70496; 71010; 80053; 80061; 80069; 82962; 83036; 83605; 83735; 84100; 84436; 84439; 84443; 84480; 84481; 84484; 85025; 85610; 85651; 85730; 86140; 87040; 87081; 90935; 93005; G0378; J0360; J2405; J2765; J7042; Q9967

== ENCOUNTER 2017-06-03 03:24 | Inpatient (IN) | END 2017-06-12 14:20 | disposition hospice, home (50) | DRG 291 | DX: I13.2 Hypertensive heart and chronic kidney disease with heart failure and with stage 5 chronic kidney disease, or end stage renal disease (principal); I50.33 Acute on chronic diastolic (congestive) heart failure; L89.151 Pressure ulcer of sacral region, stage 1; R64 Cachexia; N18.6 End stage renal disease; D64.9 Anemia, unspecified; I48.91 Unspecified atrial fibrillation; G50.0 Trigeminal neuralgia; R09.02 Hypoxemia; Z95.0 Presence of cardiac pacemaker; Z99.2 Dependence on renal dialysis; E07.81 Sick-euthyroid syndrome; Z68.22 Body mass index [BMI] 22.0-22.9, adult; I12.0 Hypertensive chronic kidney disease with stage 5 chronic kidney disease or end stage renal disease ==

== ENCOUNTER 2017-06-14 11:42 | Inpatient (IN) | payer MEDICARE, BC ==
[~2017-06-14] VITALS: Ht 149.9 cm; Wt 37.0 kg
[~2017-06-14 11:42] MED LIST changes: -AMIO200T2 PO; -GLUCOSAMINE 1,1 EACH PO; +LIDO35.415 TOP; +LOSA50TA2 PO; -NIFE60TA7 PO; +NIFE90TA PO; -OLME40TA14 PO; +TEMA7.5C PO
[2017-06-14 11:44] VITALS: Ht 149.9 cm; Wt 37.0 kg
[2017-06-14] MEDS ORDERED: SOD CHLORIDE 0.9% 1,000 ML IV STA (12:02)
[2017-06-14] MEDS ORDERED: ACETAMINOPHEN 325 MG TAB PO PRN ×2 (13:00→14:00)
[2017-06-14] MEDS ORDERED: ONDANSETRON 4 MG INJ IV PRN (13:00)
[2017-06-14 13:19] VITALS: TEMP 97.7
--- NOTE | 2017-06-14 13:21 | RADRPT ---
PROCEDURE: Chest x-ray CLINICAL INDICATION: Shortness of breath TECHNIQUE: Chest single view COMPARISON: 06/12/2017 FINDINGS: As before there is right chest pacemaker. Stable cardiomegaly and an sclerotic aortic calcification is seen. There is mild chronic interstitial vascular congestion. No confluent pneumonia seen. Costop hrenic angles sharp. Bones are osteopenic. Is moderate degenerate change of the thoracic spine. IMPRESSION: 1. Cardiomegaly with mild chronic interstitial CHF. 2. Atherosclerotic aortic calcification. 3. Pacemaker 4. interval resolution of right pleural effusion RPTAT: HH .Av Smith MD, Date Time Electronically viewed and signed by .vA Smith MD, on 06/14/2017 13:21 .W/
[2017-06-14] MEDS ORDERED: PHEN100C PO (13:27)
[2017-06-14 13:33] LABS: ABNORMAL IP MESSAGE 1; BASOPHIL # 0.1 10^3/ul (0.0-0.1); BASOPHILS % 0.5 % (0.0-2.0); EOSINOPHILS % 0.2 % (0.0-7.0); HEMATOCRIT 40.7 % (37.0-47.0); LYMPHOCYTES # 2.7 10^3/ul (0.8-2.9); LYMPHOCYTES % 15.2 % (15.0-51.0); MEAN CORPUSCULAR HEMOGLOBIN 32.7 pg (29.0-33.0); MEAN CORPUSCULAR HGB CONC 31.9 g/dl (32.0-37.0); MEAN CORPUSCULAR VOLUME 102.3 fl (82.0-101.0); MEAN PLATELET VOLUME 10.1 fl (7.4-10.4); MONOCYTE # 1.7 10^3/ul (0.3-0.9); MONOCYTES % 9.5 % (0.0-11.0); NEUTROPHIL # 13.3 10^3/ul (1.6-7.5); NEUTROPHILS % 74.1 % (39.0-77.0); PLATELET COUNT 214 10^3/UL (140-415); RED BLOOD COUNT 3.98 10^6/ul (4.20-5.40); RED CELL DISTRIBUTION WIDTH 19.2 % (11.5-14.5); WHITE BLOOD COUNT 17.9 10^3/ul (4.8-10.8)
[2017-06-14 13:47] LABS: INR 1.01; PROTIME 13.3 Sec (12.2-14.2)
[2017-06-14 13:48] LABS: PARTIAL THROMBOPLASTIN TIME 32.4 Sec (25.0-35.0); POSITIVE DIFF @See below
[2017-06-14 13:52] LABS: ALBUMIN 4.5 g/dl (3.3-4.9); ALBUMIN/GLOBULIN RATIO 1.02; BILIRUBIN,INDIRECT 0.2 mg/dl (0-1.1); BILIRUBIN,TOTAL 0.2 mg/dl (0.2-1.3); CREATININE 5.06 mg/dl (0.44-1.00); POTASSIUM 4.6 mmol/L (3.5-5.1); TOTAL PROTEIN 8.9 g/dl (6.1-8.1)
[2017-06-14 14:00] VITALS: BP 100/48; RESP 20
[2017-06-14] MEDS ORDERED: ALPRAZOLAM 0.25 MG TAB PO PRN (14:00)
[2017-06-14] MEDS ORDERED: morphine 2 MG INJ IV PRN (14:00)
[2017-06-14] MEDS ORDERED: ZOLPIDEM 5 MG TAB PO PRN (14:00)
[2017-06-14] MEDS: LOSARTAN 50 MG TAB PO SCH (14:00)
[2017-06-14] MEDS ORDERED: NACL 0.9% 3 ML SYG IV SCH (14:00)
[2017-06-14] MEDS: NIFEdipine (XL) 90 MG TAB PO SCH (14:00)
[2017-06-14 14:11] LABS: TROPONIN-I 3.96 ng/ml (0.00-0.12)
--- NOTE | 2017-06-14 15:06 | ERA ---
ER Documentation Chief Complaint Date/Time DATE: 06/14/17 TIME: 15:03 Chief Complaint Weakness x yesterday HPI Patient is an 87-year-old female with CHF, hypertension, and dialysis need who presents feeling "very weak". She came in with symptoms that started this morning. She has shortness of breath. The family had a hard time waking her up and she was slower to respond. She has left-sided facial pain from trigeminal neuralgia. She was recently admitted and discharged on June 12. The patient had dialysis yesterday but is refusing dialysis currently. The patient has no fevers. Her wishes are to be admitted to inpatient hospice and she does not want any further treatment or invasive procedures. She is currently a DNR/DNI per her wishes. Her primary doctor is Dr. Alvarez. Upon review of old medical records this is the patient's third visit since May 19, 2017. ROS All systems reviewed and are negative except as per history of present illness. Medications Home Meds Active Scripts Lidocaine (LIDOCAINE) 35.44 Gm Oint...g., 1 APPLIC TOP Q4 Y for FACE PAIN, #1 TUB Prov:YANNICK SANCHEZ V. INSTRUCTIONAL MANAGER 05/21/17 Nifedipine (Procardia Xl) 90 Mg Tab.er.24, 90 MG PO DAILY, #30 TAB Prov:YANNICK SANCHEZ V. INSTRUCTIONAL MANAGER 05/21/17 Losartan Potassium* (Cozaar*) 50 Mg Tablet, 100 MG PO DAILY, #30 TAB Prov:YANNICK SANCHEZ V. INSTRUCTIONAL MANAGER 05/21/17 Reported Medications Phenytoin* Sodium Extended (Dilantin*) 100 Mg Capsule, 100 MG PO TID, CAP 06/14/17 Temazepam* (Temazepam*) 7.5 Mg Capsule, 7.5 MG PO HS Y for INSOMNIA, CAP 05/17/17 Ergocalciferol* (Drisdol* (Vitamin D2)) 50,000 Unit Capsule, 58651 UNIT PO Q14D , CAP 05/19/16 Folic Acid/Vitamin B Comp W-C (Nephrocaps Capsule) 1 Mg Capsule, 1 MG PO DAILY, CAP 05/19/16 Sevelamer Hcl* (Renagel*) 800 Mg Tablet, 1600 MG PO WITH MEALS TID, TAB 05/19/16 Allopurinol* (Allopurinol*) 100 Mg Tablet, 100 MG PO DAILY, TAB 05/19/16 Folic Acid* (Folic Acid*) 1 Mg Tablet, 1 MG PO DAILY, TAB 05/19/16 Allergies Allergies: Coded Allergies: baclofen (Verified Adverse Reaction, Unknown, 06/14/17) Nausea and vomiting gabapentin (Verified Adverse Reaction, Unknown, 06/14/17) PMhx/Soc History of Surgery: Yes Anesthesia Reaction: No Hx Neurological Disorder: No Hx Respiratory Disorders: No Hx Cardiac Disorders: Yes Hx Psychiatric Problems: No Hx Miscellaneous Medical Probl: No Hx Alcohol Use: No Hx Substance Use: No Hx Tobacco Use: No Smoking Status: Never smoker FmHx Family History: No diabetes Physical Exam Vitals Vital Signs Date Time Temp Pulse Resp B/P Pulse Ox O2 Delivery O2 Flow Rate FiO2 06/14/17 11:44 98.9 66 18 91/51 96 Physical Exam Const: Moderate distress Head: Atraumatic Eyes: Normal Conjunctiva ENT: Normal External Ears, Nose and Mouth. Neck: Full range of motion..~ No meningismus. Resp: Decreased breath sounds bilaterally Cardio: Regular rate and rhythm, no murmurs Abd: Soft, non tender, non distended. Normal bowel sounds Skin: No petechiae or rashes Back: No midline or flank tenderness Ext: No cyanosis, or edema Neur: Awake but confused Result Diagram: 06/14/17 1305 06/14/17 1305 Results 24 hrs Current Medications Medications (Trade) Dose Ordered Sig/Dannielle Route PRN Reason Start Time Stop Time Status Last Admin Dose Admin Sodium Chloride (NS) 1,000 ml @ 1,000 mls/hr Q1H STAT IV 06/14/17 12:02 06/14/17 12:11 DC Procedures/MDM EKG read by me: Rate/Rhythm: Regular rate and rhythm at a normal rate Intervals: Normal Impression: No evidence of ischemia or arrhythmia Chest x-ray shows cardiomegaly per radiology. An 87-year-old female who presents with shortness of breath and weakness. Patient unfortunately is actively dying and does not want further treatment at this time. She wants inpatient hospice and wants to be kept comfortable. She has an elevated white blood cell count but no obvious source of infection at this time. I doubt sepsis at this time but the patient does not want treatment. The patient has acute renal failure and would require dialysis but she is refusing. She has a positive troponin which be consistent with an NSTEMI. I spoke with Dr. Hernandez who is covering for Dr. Alvarez and we will admit to inpatient hospice. [facility] was called for consultation and we are awaiting their evaluation at this time. Critical Care: Time: 35 minutes excluding all billable procedures. Treatments/Evaluations: Close monitoring and treatment of unstable vital signs, cardiorespiratory, and neurologic status, while maintaining tight balance of fluid, respiratory, and cardiac interventions. Departure Diagnosis: Primary Impression: NSTEMI (non-ST elevated myocardial infarction) Additional Impressions: Acute weakness Renal failure Condition: Serious JESUS MADDEN MD Jun 14, 2017 15:06
[2017-06-14 16:00] VITALS: BP 94/52; PULSE 68; RESP 18
[2017-06-14] MEDS: DEXTROSE 5%-0.45% NACL 1,000 ML IV SCH (16:06)
[2017-06-14] MEDS: PHENYTOIN 100 MG CAP PO SCH ×2 (16:26→20:34)
[2017-06-14 16:30] VITALS: BP 80/52; PULSE 62; RESP 18
[2017-06-14 17:07] VITALS: BP 88/55; PULSE 68; RESP 18
--- NOTE | 2017-06-14 18:02 | HP ---
DATE OF ADMISSION: 06/14/2017 IDENTIFYING DATA: The patient is an 87-year-old female with known chronic renal insufficiency who h as elected to discontinue dialysis. HISTORICAL EVENTS: The above patient has been on chronic outpatient hemodialysis for the last sever al years. She did undergo her last treatment yesterday. She has voiced to her family on several oc casions that life with continuing dialysis has been problematic in that it is quite difficult for he r to be transported to the unit and treatments have been, at times quite distressing. She voiced to her family today that she wanted to stop dialysis and just remain comfortable. She had some mild n ausea earlier today without vomiting. She has had no substernal chest pain, shortness of breath or abdominal pain. PAST MEDICAL HISTORY: Includes 1. Hypertension. 2. History of dysrhythmia. 3. History of peripheral neuropathy. 4. Prior cholecystectomy, hysterectomy and pacemaker. SOCIAL HISTORY: She does not smoke or drink. FAMILY HISTORY: Positive for hypertension. MEDICATIONS: Include 1. Ativan 0.5 at bedtime. 2. Nifedipine 90 mg per day. 3. Benicar 40 mg per day. 4. Renagel 800 mg 2 tablets t.i.d. with food. 5. Allopurinol 100 mg per day. 6. [place] 325 one pill t.i.d. 7. Tramadol 50 mg q. 6 p.r.n. 8. Keppra 100 mg t.i.d. PHYSICAL EXAMINATION: GENERAL: ____ female in no acute distress. VITAL SIGNS: BP 122/80, pulse 70, respirations 20, she was afebrile. EYES: Extraocular muscles were full. NOSE, MOUTH, AND THROAT: Normal. NECK: Supple without jugular venous distention, thyroid enlargement or adenopathy. LUNGS: Clear. HEART: Rhythm regular, no murmur. No third or fourth sound. ABDOMEN: Nontender. Liver and spleen were not palpable. No masses or tenderness were noted. EXTREMITIES: No edema. Calves nontender. Pulses reduced in the lower extremities. NEUROLOGIC: No lateralizing motor weakness. IMPRESSION: Chronic renal failure, having been maintained on chronic hemodialysis. The patient elect ing to discontinue dialysis as revealed to me by her family and revealed to me by her at the bedside today. PLAN: To be made comfortable, hospice care has been arranged, IV placed for the treatment of pain a nd nausea. No additional labs will be obtained subsequent to that obtained in the ER. Dictated By: SABINA LAYTON/AJ Conf#: [id number] DID#: [id number]
[2017-06-14] MEDS: morphine 2 MG INJ IV PRN ×3 (18:38→22:53)
[2017-06-14 20:00] VITALS: BP 67/38; PULSE 50; RESP 24
[2017-06-14] MEDS ORDERED: PHENYTOIN 100 MG CAP PO SCH (21:00)
[2017-06-14] MEDS: ONDANSETRON 4 MG INJ IV PRN (22:58)
[2017-06-15] MEDS: morphine 2 MG INJ IV PRN ×3 (04:16→08:28)
[2017-06-15] MEDS: ONDANSETRON 4 MG INJ IV PRN (06:31)
[2017-06-15] MEDS: PHENYTOIN 100 MG CAP PO SCH ×2 (08:33→12:51)
[2017-06-15] MEDS: LOSARTAN 50 MG TAB PO SCH (08:33)
[2017-06-15] MEDS: NIFEdipine (XL) 90 MG TAB PO SCH (08:33)
[2017-06-15] MEDS: DEXTROSE 5%-0.45% NACL 1,000 ML IV SCH ×2 (08:34→09:44)
--- NOTE | 2017-06-15 08:51 | PN ---
Date/Time of Note Date/Time of Note DATE: 06/15/17 TIME: 08:47 Assessment/Plan VTE Prophylaxis VTE Prophylaxis Intervention: other Lines/Catheters IV Catheter Type (from Nrsg): Peripheral IV Assessment/Plan Assessment/Plan 1. Rev with caregiver again. Pt is no code status and hospice care can be rendered at a ecf or at home. Family needs to decide on best option./ 2. Elev WBC and abnl liver tests noted compatible with cholangitis but will not pursue given #1. 3. CKD, Pt has elected not to cont HD. 4. Rev with nursing staff all above and will max her comfort with MS and low dose ativan. Subjective 24 Hr Interval Summary Subjective hx not possible: other (Caregiver is present. Pt does not respond to verbal or alee tact stimuli) Exam/Review of Systems Vital Signs Vitals Vital Signs Date Time Temp Pulse Resp B/P Pulse Ox O2 Delivery O2 Flow Rate FiO2 06/14/17 20:00 98.2 50 24 67/38 98 Room Air Intake and Output 06/14/17 06/14/17 06/15/17 15:00 23:00 07:00 Intake Total 170 ml 120 ml Balance 170 ml 120 ml Exam Neck: No jvd Respiratory: clear to auscultation Cardiovascular: regular rate and rhythm Gastrointestinal: soft Extremities: No edema Results Result Diagram: 06/14/17 1305 06/14/17 1305 Results 24 hrs Laboratory Tests Test 06/14/17 13:05 White Blood Count 17.9 #H Red Blood Count 3.98 L Hemoglobin 13.0 Hematocrit 40.7 Mean Corpuscular Volume 102.3 H Mean Corpuscular Hemoglobin 32.7 Mean Corpuscular Hemoglobin Concent 31.9 L Red Cell Distribution Width 19.2 H Platelet Count 214 Mean Platelet Volume 10.1 Neutrophils % 74.1 Lymphocytes % 15.2 Monocytes % 9.5 Eosinophils % 0.2 Basophils % 0.5 Nucleated Red Blood Cells % 0.0 Neutrophils # 13.3 H Lymphocytes # 2.7 Monocytes # 1.7 H Eosinophils # 0.0 Basophils # 0.1 Nucleated Red Blood Cells # 0.0 Prothrombin Time 13.3 Prothrombin Time Ratio 1.0 INR International Normalized Ratio 1.01 Activated Partial Thromboplast Time 32.4 Sodium Level 139 Potassium Level 4.6 Chloride Level 93 L Carbon Dioxide Level 31 Anion Gap 20 H Blood Urea Nitrogen 50 H Creatinine 5.06 H Glucose Level 100 Lactic Acid Level 2.2 *H Calcium Level 10.0 Total Bilirubin 0.2 Direct Bilirubin 0.00 Indirect Bilirubin 0.2 Aspartate Amino Transf (AST/SGOT) 408 H Alanine Aminotransferase (ALT/SGPT) 195 H Alkaline Phosphatase 293 H Troponin I 3.960 *H Total Protein 8.9 H Albumin 4.5 Globulin 4.40 H Albumin/Globulin Ratio 1.02 Medications Medications Current Medications Dextrose/Sodium Chloride (D5-1/2ns) 1,000 ml @ 50 mls/hr Q20H IV Last administered on 06/14/17 16:06; Admin Dose 50 MLS/HR; Start 06/14/17 at 13:34 Ondansetron HCl (Zofran Inj) 4 mg Q6H PRN IV NAUSEA AND/OR VOMITING Last administered on 06/15/17 06:31; Admin Dose 4 MG; Start 06/14/17 at 14:00 Zolpidem Tartrate (Ambien) 5 mg QHS PRN PO SLEEP; Start 06/14/17 at 14:00 Losartan Potassium (Cozaar) 100 mg DAILY PO ; Start 06/14/17 at 14:00 Nifedipine (Procardia Xl) 90 mg DAILY PO ; Start 06/14/17 at 14:00 Multivit/Ca Carb/ B Cmplx/FA/Prenat (Galile[place]-Jaci) 1 tab DAILY PO ; Start 06/15/17 at 09:00 Acetaminophen (Tylenol Tab) 650 mg Q6H PRN PO PAIN AND OR ELEVATED TEMP; Start 06/14/17 at 14:00 Alprazolam (Xanax) 0.25 mg TID PRN PO ANXIETY Last administered on 06/14/17 20 :33; Admin Dose 0.25 MG; Start 06/14/17 at 14:00 Phenytoin (Dilantin) 100 mg TID PO Last administered on 06/14/17 20:34; Admin Dose 100 MG; Start 06/14/17 at 15:45 Morphine Sulfate (morphine) 1 mg Q2H PRN IV PAIN Last administered on 08:28; Admin Dose 1 MG; Start 06/14/17 at 18:25 SABINA MCCRAY MD Jun 15, 2017 08:51
[2017-06-15] MEDS ORDERED: LORAZEPAM 2 MG INJ IV PRN (09:00)
[2017-06-15] MEDS ORDERED: MULTIVIT/CA CARB/B CMPLX/FA TAB PO SCH (09:00)
[2017-06-15] MEDS ORDERED: morphine 2 MG INJ IV PRN (10:25)
== END 2017-06-15 16:20 | disposition expired | DRG 291 ==
LOC: E/R 11:42 → MS1 12:39
PROVIDERS: ADMIT Internal Medicine; ATTEND Internal Medicine
DX: I13.2 Hypertensive heart and chronic kidney disease with heart failure and with stage 5 chronic kidney disease, or end stage renal disease (principal); N18.6 End stage renal disease; N17.9 Acute kidney failure, unspecified; K83.0 Cholangitis; G62.9 Polyneuropathy, unspecified; I50.9 Heart failure, unspecified; Z99.2 Dependence on renal dialysis; Z95.0 Presence of cardiac pacemaker; Z66 Do not resuscitate; Z51.5 Encounter for palliative care; R79.9 Abnormal finding of blood chemistry, unspecified; G50.0 Trigeminal neuralgia
CPT/HCPCS: 36415; 71010; 80053; 83605; 84484; 85025; 85610; 85730; 87040; 87081; 93005; J2270; J2405; J7030; J7042